=== PATIENT | female | born 1970 ===

== ENCOUNTER 2020-03-17 13:21 | Emergency (ER) | payer MEDICAID, SELFPAY ==
[2020-03-17 13:39] VITALS: BP 113/70; PULSE 99; RESP 20; TEMP 36.6; O2SAT 100; BMI 36.3
--- NOTE | 2020-03-17 13:53 | XR_ITS ---
EXAMINATION: XR chest 1V CLINICAL INFORMATION: Reason for Exam fever, cough, chest pain COMPARISON: Prior chest x-ray 04/09/2019 TECHNIQUE: XR chest 1V Tubes and lines: None Lungs and Natalie: Both lungs are clear. Pleura: Normal. Costophrenic angles are sharp. No pneumothorax. Heart and mediastinum: The mediastinum is within normal limits.. Bones: Skeletal structures included are normal for patient's age. XR/XR chest 1V IMPRESSION: Normal chest x-ray, no radiographic evidence of acute infiltrates.
--- NOTE | 2020-03-17 13:53 | ED.URI ---
HPI - URI/Sore Throat General Chief Complaint: Weakness Stated Complaint: flu symptoms Time Seen by Provider: 03/17/20 13:53 Source: patient Mode of arrival: ambulatory Limitations: no limitations History of Present Illness HPI Narrative: 50 y/o female presenting with fever, cough, body aches for the last 2 days. Cough is dry and keeps her up at night. She reports pain in the right side of her back when she coughs. She has been taking Tylenol with improvement in the back pain. She has been eating and drinking normally. Denies abd pain, N/V/D. Did not get her flu shot this year. No known exposure to COVID. MD elicited complaint: fever Onset (ago): day(s) (3) Consistency: constant Severity: moderate Able to tolerate fluids by mouth: Yes Exacerbating factors: exertion and deep breaths Relieving factors: NSAID and OTC cold medicine Associated symptoms: fever, chills, myalgias, headache, nasal congestion and cough Treatments prior to arrival: acetaminophen Related Data Previous Rx's Medication Instructions Recorded acetaminophen [Tylenol Arthritis 650 mg PO Q8H PRN #30 tab 03/17/20 Pain] hydrocodone-homatropine 5 ml PO Q6H PRN #60 ml 03/17/20 ibuprofen 600 mg PO Q8H PRN #20 tab 03/17/20 lidocaine [Lidoderm] 1 patch TOPICAL DAILY #15 ea 03/17/20 Allergies Allergy/AdvReac Type Severity Reaction Status Date / Time aspirin [ASA] Allergy Unknown HIVES Unverified 01/18/20 19:11 Penicillins [PENICILLINS] Allergy Unknown HIVES Unverified 01/18/20 19:11 Review of Systems Review of Systems: Constitutional: + Fever, + Chills ENT/Mouth: No sore throat, No Rhinorrhea, No Swallowing Difficulty Eyes: No Eye Pain, No Swelling, No Redness Cardiovascular: No Chest Pain, No SOB, No Orthopnea, No Edema Respiratory: + Cough, No Sputum, No Wheezing, + dyspnea Gastrointestinal: No Nausea, No Vomiting, No Diarrhea, No abdominal Pain Genitourinary: No Dysuria, No Urinary Frequency, No Hematuria Musculoskeletal: + joint pain, + Myalgias Skin: No Skin Lesions, No rash Neuro: No Weakness, No Numbness, No Dizziness, + Headache Psych: No Anxiety/Panic, No Depression Heme/Lymph: No Bruising, No Lymphadenopathy Endocrine: No Polyuria, No Polydipsia [facility] Past Medical History Attestation statement: The following information was validated with the patient. Medical History No known health problems Surgical History (Updated 03/17/20 @ 13:44 by Sam Brennan) Status post partial hysterectomy Social History Social History Advance Directives: No Advance Directives Information Provided: Yes Physical Exam Vital Signs: Vital Signs: Last Vital Signs Temp 97.9 F 03/17/20 13:39 Pulse 99 03/17/20 13:39 Resp 20 03/17/20 13:39 BP 113/70 03/17/20 13:39 Pulse Ox 100 03/17/20 13:39 Body Mass Index 36.3 Appearance: Alert. Oriented X3. No acute distress. Eyes: Pupils equal, round and reactive to light. ENT: Pharynx normal. Neck: Normal inspection. Neck supple. CVS: Normal heart rate and rhythm. Pulses normal. Respiratory: No respiratory distress. Breath sounds normal. Congested cough. Abdomen: Obese, soft and nontender. +BS x4 Skin: Skin warm and dry. Normal skin color. Normal skin turgor. No rashes. Extremities: No lower extremity edema. Neuro: Oriented X 3. No motor deficit. No sensory deficit. Course Course Course Narrative: 50 y/o female presenting with flu-like symptoms - cough, fever, myalgias. Concern for COVID vs influenza. Will get rapid swab now. CXR as well. VSS and she is non-toxic appearing. Reevaluation(s) Reevaluation #1: CXR normal. Patient requesting med for cough - will give Rx for antitussive, inhaler and tylenol for back aches. She is stable for discharge. Patient counseled - encouraged to f/u with PCP for further management. She would like to be discharged prior to knowing the results of her resp panel. Reevaluation #2: Called patient to inform her of POSITIVE COVID-19 test. All questions were answered. She will f/u with her employer and PCP. MDM - URI/Sore Throat MDM Narrative Medical decision making narrative: Concern for COVID vs influenza Differential Diagnosis Differential diagnosis: Likely upper respiratory infection, sinusitis, viral infection, bronchitis, influenza and pharyngitis Lab Data Labs: Lab Results 03/17/20 Range/Units 14:11 Coronavirus (PCR) POSITIVE A (Negative) Influenza Type A (PCR) NEGATIVE (Negative) Influenza Type B (PCR) NEGATIVE (Negative) RSV RNA Qual (PCR) NEGATIVE (Negative) Critical Care Time Critical Care Time Critical Care Time: No Discharge Plan Discharge Clinical Impression: Acute viral syndrome Patient Disposition: Home, Self-Care Instructions: Viral Syndrome (ED), COVID-19 (Coronavirus Disease 2019) (ED) Additional Instructions: Your chest x-ray today was normal. You were tested for COVID-19, Influenza A/B and RSV. We will call you with the results this afternoon. Continue taking Motrin and/or Tylenol as needed for back pain and muscle aches and pain. If you develop difficulty breathing, shortness of breath or change in chest pain call 911 or come back to the ER fur further evaluation. Follow up with your doctor this week. Take over the counter cold/flu medications for your symptoms as needed. Prescriptions: New ibuprofen 600 mg tablet 600 mg PO Q8H PRN (Reason: pain) Qty: 20 RF: 0 acetaminophen [Tylenol Arthritis Pain] 650 mg tablet extended release 650 mg PO Q8H PRN (Reason: pain) Qty: 30 RF: 0 lidocaine [Lidoderm] 5 % adhesive patch,medicated 1 patch topical DAILY Qty: 15 RF: 0 hydrocodone-homatropine 5-1.5 mg/5 mL syrup 5 ml PO Q6H PRN (Reason: cough) Qty: 60 RF: 0 Stand Alone Forms: Work/School Release Interventions: ED Discharge Assessment Last Done: 03/17/20 15:06 Discharge Date/Time: 03/17/20 15:07
[2020-03-17 15:02] LABS: Influenza A PCR NEGATIVE (Negative); Influenza B PCR NEGATIVE (Negative); Resp Syncy Virus RNA Qual PCR NEGATIVE (Negative); SARS COV2 PCR INHOUSE POSITIVE (Negative)
== END 2020-03-17 15:07 | disposition home or self-care (01) ==
PROVIDERS: Physician Assistant; Emergency Provider Emergency Medicine
DX: B34.9 Viral infection, unspecified (principal); R50.9 Fever, unspecified; R05 Cough; Z20.828 Contact with and (suspected) exposure to other viral communicable diseases; Z79.899 Other long term (current) drug therapy
CPT/HCPCS: 0241U; 71045; 99283

== ENCOUNTER 2020-09-20 07:53 | Emergency (ER) | payer OTHER, SELFPAY ==
--- NOTE | ~2020-09-20 | XR_ITS ---
EXAMINATION: XR CHEST CLINICAL INFORMATION: Cough. COMPARISON: Chest 03/17/2020 TECHNIQUE: Frontal view of the chest was obtained. FINDINGS: No significant abnormality is noted involving the heart, lungs, mediastinum, bony thorax or soft tissues. XR/XR chest 1V IMPRESSION: Unremarkable chest examination. No change from 03/17/2020
[2020-09-20 08:07] VITALS: BP 125/68; PULSE 99; RESP 16; TEMP 36.7; O2SAT 97; BMI 34.8
--- NOTE | 2020-09-20 08:41 | ED_ITS ---
HPI - General Adult General Chief complaint: General Medical Stated complaint: fever, cough Time Seen by Provider: 09/20/20 08:21 Source: patient Mode of arrival: ambulatory Limitations: no limitations History of Present Illness HPI narrative: 53-year-old female presents to ED for 1 week of fever and cough and also body aches. Patient wants to be tested for COVID. Patient had COVID last year. Patient denies anyone else at home having symptoms. Patient states no sore throat, abdominal pain, diarrhea, chest pain, or shortness of breath. Related Data Previous Rx's Medication Instructions Recorded acetaminophen [Tylenol Arthritis 650 mg PO Q8H PRN #30 tab 03/17/20 Pain] hydrocodone-homatropine 5 ml PO Q6H PRN #60 ml 03/17/20 ibuprofen 600 mg PO Q8H PRN #20 tab 03/17/20 lidocaine [Lidoderm] 1 patch TOPICAL DAILY #15 ea 03/17/20 benzonatate [Tessalon Perles] 100 mg PO TID PRN #18 cap 09/20/20 Allergies Allergy/AdvReac Type Severity Reaction Status Date / Time aspirin [ASA] Allergy Unknown HIVES Unverified 01/18/20 19:11 Penicillins [PENICILLINS] Allergy Unknown HIVES Unverified 01/18/20 19:11 Review of Systems Review of Systems: Yes all other systems are reviewed and are negative Constitutional: Constitutional: Reports as per HPI, Reports no additional constitutional complaints, Reports body ache(s) and Reports fever(s) Eyes: Eyes: Reports as per HPI and Reports no additional eye complaints ENT: Reports system reviewed and no additional complaints, except as documented and Reports as per HPI Cardiovascular: Cardiovascular: Reports as per HPI, Reports no additional cardiovascular complaints, Denies chest pain, Denies dyspnea and Denies dyspnea on exertion Respiratory: Respiratory: Reports as per HPI, Reports no additional respiratory complaints, Reports cough, Denies pain on inspiration, Denies pain with cough, Denies dyspnea and Denies dyspnea on exertion Gastrointestinal: Gastrointestinal: Reports as per HPI and Reports no additional gastrointestinal complaints Musculoskeletal: Musculoskeletal: Reports no additional musculoskeletal complaints and Reports as per HPI Neurologic: Reports system reviewed and no additional complaints, except as documented and Reports as per HPI [facility] Past Medical History Medical History No known health problems Surgical History (Updated 03/17/20 @ 13:44 by Sam Brennan) Status post partial hysterectomy Social History Social History Advance Directives: Yes Advance Directives Information Provided: Yes Advance Directives on File: No Patient : No Physical Exam Vital Signs: Vital Signs: Last Vital Signs Temp 98.1 F 09/20/20 08:07 Pulse 99 09/20/20 08:07 Resp 16 09/20/20 08:07 BP 125/68 09/20/20 08:07 Pulse Ox 97 09/20/20 08:07 Body Mass Index 34.8 Const: General: cooperative, healthy appearing, comfortable, no acute distress, well developed, alert and awake Orientation/consciousness: patient oriented x3 HENMT: Head: Yes normal to inspection, Yes No palpable skull fracture present, Yes normocephalic and Yes atraumatic Ears: hearing grossly normal bilaterally and external ears normal Throat: Yes posterior oropharynx normal, Yes tonsils normal and Yes uvula midline Eyes: General: appearance normal, both eyes and all related structures Neck: Neck: Yes normal visual inspection, Yes full ROM, Yes no lymphadenopathy, Yes no meningeal signs, Yes trachea midline, Yes supple and No tender Chest: Chest palpation & inspection: normal inspection of the chest and normal palpation of entire chest wall Resp: Effort & Inspection: normal respiratory effort and able to speak in complete sentences Auscultation: clear to auscultation bilaterally Cardio: Jugular venous distension: no JVD Heart sounds: S1 normal heart sound present and S2 normal heart sound present GI: Inspection: Yes normal to inspection and No abdominal wall ecchymosis Palpation (GI): Soft to palpation, not firm, nontender, no guarding and not rigid : General: No CVA tenderness and Yes no CVA tenderness Back/Spine/Pelvis: Back: no CVA tenderness, No CVA tenderness and No back tenderness Skin: General skin exam: no rashes or lesions noted and elasticity normal Neuro: General: patient oriented x3, no meningeal signs and CN's II-XI intact bilaterally Cranial nerves: Yes CN's II-XII intact bilaterally Extrem: General: Yes normal to inspection and Yes full ROM Psych: Appearance: grossly normal, well kempt and not disheveled Course Course Course Narrative: Patient will have COVID swab sent and had chest x-ray ordered. Reevaluation(s) Reevaluation #1: Chest x-ray negative for pneumonia. Patient will be called with COVID swab results. Reevaluation #2: COVID swab came back negative. Patient was called and informed of results. Time: 17:10 Medical Decision Making MDM Narrative Medical decision making narrative: Viral syndrome Lab Data Labs: Lab Results 09/20/20 Range/Units 08:37 Coronavirus (PCR) NEGATIVE (Negative) Influenza Type A (PCR) NEGATIVE (Negative) Influenza Type B (PCR) NEGATIVE (Negative) RSV RNA Qual (PCR) NEGATIVE (Negative) Discharge Plan Discharge Clinical Impression: Upper respiratory infection, Acute viral syndrome Patient Disposition: Home, Self-Care Instructions: Upper Respiratory Infection (ED), Viral Syndrome (ED) Additional Instructions: Return to ED for any chest pain, shortness of breath, weakness, dizziness, swelling of lower extremity, calf pain, coughing up blood, or any other concerning symptoms. Please follow-up with PCP Prescriptions: New benzonatate [Tessalon Perles] 100 mg capsule 100 mg PO TID PRN (Reason: cough) Qty: 18 RF: 0 No Action ibuprofen 600 mg tablet 600 mg PO Q8H PRN (Reason: pain) Qty: 20 RF: 0 acetaminophen [Tylenol Arthritis Pain] 650 mg tablet extended release 650 mg PO Q8H PRN (Reason: pain) Qty: 30 RF: 0 lidocaine [Lidoderm] 5 % adhesive patch,medicated 1 patch topical DAILY Qty: 15 RF: 0 hydrocodone-homatropine 5-1.5 mg/5 mL syrup 5 ml PO Q6H PRN (Reason: cough) Qty: 60 RF: 0 Stand Alone Forms: Work/School Release Interventions: ED Discharge Assessment Last Done: 09/20/20 10:33 Discharge Date/Time: 09/20/20 10:35 Print Language: Sinhala
[2020-09-20] MEDS: Acetaminophen 325 MG TABLET 650 MG PO (09:08)
[2020-09-20 09:30] LABS: Influenza A PCR NEGATIVE (Negative); Influenza B PCR NEGATIVE (Negative); Resp Syncy Virus RNA Qual PCR NEGATIVE (Negative); SARS COV2 PCR INHOUSE NEGATIVE (Negative)
== END 2020-09-20 10:35 | disposition home or self-care (01) ==
PROVIDERS: Physician Assistant; Emergency Provider Internal Medicine
DX: J06.9 Acute upper respiratory infection, unspecified (principal); B34.9 Viral infection, unspecified; R50.9 Fever, unspecified; R05 Cough; Z20.822 Contact with and (suspected) exposure to COVID-19; Z79.899 Other long term (current) drug therapy
CPT/HCPCS: 0241U; 36415; 71045; 99283

== ENCOUNTER 2020-11-25 10:47 | Emergency (ER) | payer OTHER, SELFPAY ==
--- NOTE | ~2020-11-25 | CT_ITS ---
EXAMINATION: CT ANGIOGRAM OF THE CHEST WITH AND WITHOUT CONTRAST (CT PULMONARY ANGIOGRAM FOR PE) CLINICAL INFORMATION: Reason for Exam Left upper back pain, r/o pe COMPARISON: Previous chest x-ray from earlier the same day TECHNIQUE: Prior to contrast administration, noncontrast localization images were obtained. Subsequently, multidetector volumetric imaging was performed from the thoracic inlet to below the diaphragms following the administration of 75 mL Omnipaque 350 intravenous contrast. No contrast reaction reported Sagittal, coronal, and MIP oblique sagittal reformatted images were obtained on the CT workstation, uploaded to PACS, and reviewed. This CT examination was performed using dose optimization techniques as appropriate, variously including the following: *Automated exposure control *Adjustment of mA and/or kV according to patient size (this includes techniques or standardized protocols for targeted exams where dose is matched to indication/reason for exam; i.e. extremities or head) *Use of iterative reconstruction technique Total exam dose-length product 709 mGy-cm FINDINGS: QUALITY OF STUDY/CONTRAST BOLUS: Satisfactory. PULMONARY ARTERIES: No central or segmental pulmonary emboli. THORACIC AORTA: No aneurysm or dissection. LUNG: The lung volumes are low. No focal consolidation, nodules or masses. PLEURA: No pleural effusion or pneumothorax. MEDIASTINUM: Normal heart size. No pericardial effusion. No hilar or mediastinal lymphadenopathy. No evidence of septal bowing or right heart strain. CHEST WALL/AXILLA: There are small bilateral axillary lymph nodes. No enlarged lymph nodes or chest wall mass is seen. OSSEOUS STRUCTURES: No acute or suspicious osseous abnormality. There are degenerative changes of the spine. UPPER ABDOMEN: Unremarkable. No reflux of contrast into the hepatic veins to suggest elevated right heart pressures. CT/CT angio chest PE protocol IMPRESSION: No evidence of pulmonary embolism. Low lung volumes. Degenerative changes of the spine. VTE: negative
--- NOTE | ~2020-11-25 | XR_ITS ---
EXAMINATION: XR CHEST CLINICAL INFORMATION: Back pain. Fall. COMPARISON: Previous chest x-rays most recent August 2020 TECHNIQUE: 2 views of the chest were obtained. FINDINGS: The cardiac and mediastinal contours are stable. There are increased central markings questionable for bronchial wall thickening. The lungs are otherwise clear. No evidence of pneumonia is seen. There is no pleural effusion or pneumothorax. There are degenerative changes of the spine. XR/XR chest 2V IMPRESSION: Increased hilar markings suggestive of central bronchial wall thickening, left greater than right. No evidence of pneumonia.
[2020-11-25 11:09] VITALS: BP 97/68; PULSE 84; RESP 18; TEMP 36.1; O2SAT 96; BMI 34.7
--- NOTE | 2020-11-25 11:52 | ECG_ITS ---
Test Reason : UPPER BACK PAIN Blood Pressure : / mmHG Vent. Rate : 067 BPM Atrial Rate : 067 BPM P-R Int : 144 ms QRS Dur : 072 ms QT Int : 440 ms P-R-T Axes : 055 027 038 degrees QTc Int : 464 ms Normal sinus rhythm Normal ECG When compared with ECG of 27-MAR-2017 03:25, T wave inversion no longer evident in Anterior leads Referred By: Wendy Weiss Electronically Signed By:ANITA BRAGG
[2020-11-25 12:32] LABS: MANUAL DIFF FLAG NO
[2020-11-25 12:35] LABS: Basophils Percent Auto 0.4 % (0-2); Eosinophils Absolute Auto 0.2 X10*3/uL (0.0-0.4); Hematocrit 44.5 % (37-47); Hemoglobin 14.5 g/dl (12.0-16.0); Imm Gran Abs Auto 0.04 X10*3/uL (0.00-0.03); Imm Gran Pct Auto 0.5 % (0.0-0.4); Lymphocytes Absolute Auto 2.9 X10*3/uL (1.2-4.9); Lymphocytes Percent Auto 35.8 % (20-40); Mean Corpuscular HGB Conc 32.6 g/dl (31.0-35.0); Mean Corpuscular Hemoglobin 28.4 pg (27.0-33.0); Mean Corpuscular Volume 87.3 fL (80-98); Mean Platelet Volume 9.3 fL (9.4-12.3); Monocytes Absolute Auto 0.5 X10*3/uL (0.1-1.2); Monocytes Percent Auto 5.6 % (2-11); Neutrophils Absolute Auto 4.5 X10*3/uL (2.0-8.3); Neutrophils Percent Auto 55.7 % (45-73); Platelet Count 358 X10*3/uL (160-400); Red Cell Distribution Width 14.6 % (11.0-16.0); White Blood Count 8.1 X10*3/uL (4.8-10.8)
--- NOTE | 2020-11-25 12:50 | ED_ITS ---
HPI - Back Pain/Injury General Chief Complaint: Back Pain/Injury Stated Complaint: flank pain Time Seen by Provider: 11/25/20 11:49 Source: patient Mode of arrival: ambulatory Limitations: no limitations History of Present Illness HPI Narrative: 50-year-old female here with complaints of left flank/left upper back pain x 3 days. Patient also has a cough. No shortness of breath or chest pain. Pain is worsened with palpation, deep breathing and movement. No leg swelling or pain. No recent travel or sick contacts. No urinary symptoms. No fevers, chills, nausea, vomiting, diarrhea. Related Data Previous Rx's Medication Instructions Recorded acetaminophen [Tylenol Arthritis 650 mg PO Q8H PRN #30 tab 03/17/20 Pain] hydrocodone-homatropine 5 ml PO Q6H PRN #60 ml 03/17/20 ibuprofen 600 mg PO Q8H PRN #20 tab 03/17/20 lidocaine [Lidoderm] 1 patch TOPICAL DAILY #15 ea 03/17/20 benzonatate [Tessalon Perles] 100 mg PO TID PRN #18 cap 09/20/20 cyclobenzaprine 10 mg PO TID PRN #10 tab 11/25/20 lidocaine [Lidoderm] 1 patch TOPICAL DAILY #15 ea 11/25/20 Allergies Allergy/AdvReac Type Severity Reaction Status Date / Time aspirin [ASA] Allergy Unknown HIVES Verified 11/25/20 11:09 Penicillins [PENICILLINS] Allergy Unknown HIVES Verified 11/25/20 11:09 Review of Systems Review of Systems: Yes all other systems are reviewed and are negative Constitutional: Constitutional: Reports no additional constitutional comp laints, Denies body ache(s), Denies chills, Denies fever(s), Denies headache(s) and Denies weakness Eyes: Eyes: Reports no additional eye complaints and Denies change in vision ENT: Reports system reviewed and no additional complaints, except as documented, Denies dizziness, Denies headache(s), Denies nasal congestion, Denies nasal discharge and Denies neck pain Cardiovascular: Cardiovascular: Reports no additional cardiovascular complaints, Denies chest pain, Denies leg edema and Denies dyspnea Respiratory: Respiratory: Reports no additional respiratory complaints, Reports cough and Denies dyspnea Gastrointestinal: Gastrointestinal: Reports no additional gastrointestinal complaints, Denies abdominal pain, Denies diarrhea, Denies nausea and Denies vomiting Genitourinary: Genitourinary: Reports no additional female genitourinary complaints and Denies urinary incontinence Musculoskeletal: Musculoskeletal: Reports no additional musculoskeletal complaints, Reports back pain, Denies arthralgias, Denies joint swelling, Denies neck pain, Denies numbness and Denies tingling Integumentary/Breasts: Skin/Breast: Reports system reviewed and no additional complaints, except as docu and Denies rash Neurologic: Reports system reviewed and no additional complaints, except as documented, Denies Abnormal speech present, Denies dizziness, Denies headache(s), Denies numbness, Denies tingling and Denies weakness PMFSH Past Medical History Attestation statement: The following information was validated with the patient. Source: old records reviewed and nursing notes reviewed Medical History No known health problems Surgical History Status post partial hysterectomy Social History Social History Advance Directives: Yes Advance Directives Information Provided: No Advance Directives on File: No Physical Exam Vital Signs: Vital Signs: Last Vital Signs Temp 98.5 F 11/25/20 14:24 Pulse 66 11/25/20 14:24 Resp 16 11/25/20 14:24 BP 114/64 11/25/20 14:24 Pulse Ox 97 11/25/20 14:24 Body Mass Index 34.7 Const: General: cooperative, healthy appearing, comfortable and no acute distress Orientation/consciousness: patient oriented x3 Limitations: no limitations HENMT: Head: Yes normal to inspection Ears: hearing grossly normal bilaterally General nose exam: Normal external nose present Face and sinus: Yes normal facial exam Mouth: Normal oral and palatal mucosa present Throat: Yes posterior oropharynx normal Eyes: General: appearance normal, both eyes and all related structures Pupils: Equal, round and reactive pupils present Neck: Neck: Yes normal visual inspection Chest: Chest palpation & inspection: normal inspection of the chest Resp: Effort & Inspection: normal respiratory effort Auscultation: clear to auscultation bilaterally Cardio: Rate: regular rate Rhythm: regular rhythm Peripheral pulses: Peripheral pulses 2+ throughout GI: Inspection: Yes normal to inspection Palpation (GI): Soft to palpation and nontender Auscultation: normal bowel sounds Back/Spine/Pelvis: Other: Left upper thoracic tenderness with no midline tenderness step-offs or deformities. Most of the patient's pain is in her soft tissue area. No muscle spasm. Thoracic/Lumbar Spine: thoracic and lumbar spine normal to inspection Skin: General skin exam: no rashes or lesions noted Neuro: General: patient oriented x3, no focal motor deficits and normal sensation to monofilament Cranial nerves: Yes Equal, round and reactive pupils present Cognition (Neuro): normal cognition Speech: No Abnormal speech present Gait exam (Neuro): Normal gait present Motor exam (neuro): 5/5 motor strength present throughout Extrem: General: Yes normal to inspection, Yes no pedal edema and Yes no calf tenderness Course Course Course Narrative: 50-year-old female here with complaints of left upper back pain x3 days with a dry intermittent cough. No shortness of breath, leg swell ing or chest pain. No urinary symptoms. Hemodynamically stable. Will check labs, EKG, chest x-ray. 1405-mildly elevated D-dimer. Family history of blood clots. Will check CTA to r/o pe 1530-CT negative for PE. Likely muscular. All other labs and urine negative. Reviewed findings with the patient. Will treat supportively with muscle relaxants and medicated patches. Reviewed worrisome signs and symptoms when to return to the emergency department. Comfortable discharge home. MDM - Back Pain/Injury MDM Narrative Medical decision making narrative: Renal colic, pyelonephritis, PE, Differential Diagnosis Differential diagnosis: Likely lumbar radiculopathy and strain of lumbar region Medical Records Attestation: I reviewed the patient's medical records. Lab Data Attestation: I reviewed the patient's lab results. Result diagrams: 11/25/20 12:22 11/25/20 12:22 Labs: Lab Results 11/25/20 11/25/20 11/25/20 Range/Units 12:22 12:22 12:22 WBC 8.1 (4.8-10.8) X10*3/uL RBC 5.10 (4.20-5.50) X10*6/uL Hgb 14.5 (12.0-16.0) g/dl Hct 44.5 (37-47) % MCV 87.3 (80-98) fL MCH 28.4 (27.0-33.0) pg MCHC 32.6 (31.0-35.0) g/dl RDW 14.6 (11.0-16.0) % Plt Count 358 (160-400) X10*3/uL MPV 9.3 L (9.4-12.3) fL Immature Gran % (Auto) 0.5 H (0.0-0.4) % Neut % (Auto) 55.7 (45-73) % Lymph % (Auto) 35.8 (20-40) % [place] % (Auto) 5.6 (2-11) % Eos % (Auto) 2.0 (0-4) % Baso % (Auto) 0.4 (0-2) % Lymph # (Auto) 2.9 (1.2-4.9) X10*3/uL [place] # (Auto) 0.5 (0.1-1.2) X10*3/uL Eos # (Auto) 0.2 (0.0-0.4) X10*3/uL Baso # (Auto) 0.0 (0.0-0.2) X10*3/uL Abs Immat Gran (auto) 0.04 H (0.00-0.03) X10*3/uL Absolute Neuts (auto) 4.5 (2.0-8.3) X10*3/uL Absolute Nucleated RBC 0.000 (0.0-0.012) X10*3/uL Nucleated RBC % (auto) 0.0 (0.0-0.2) /100WBC D-Dimer NG/ML Sodium 139 (135-145) mmol/L Potassium 4.4 (3.3-5.1) mmol/L Chloride 106 (96-108) mmol/L Carbon Dioxide 27 (22-29) mmol/L Anion Gap 10 L (12-20) BUN 16 (9-16) mg/dL Creatinine 1.07 (0.5-1.4) mg/dL Estim Creat Clear Calc 73.2 Estimated GFR 54 Random Glucose 128 H (60-115) mg/dL Calcium 9.7 (8.4-10.2) mg/dL Total Bilirubin < 0.2 (0.0-1.0) mg/dL Direct Bilirubin < 0.2 (0.0-0.5) mg/dL AST 14 (5-31) U/L ALT 11 (0-31) U/L Alkaline Phosphatase 88 (39-117) U/L Total Protein 8.5 H (6.5-8.0) g/dL Albumin 4.3 (3.5-5.0) g/dL Lipase 22 (8-78) U/L Urine Color Urine Appearance Urine pH (5.0-8.0) Ur Specific [place] (1.005-1.025) Urine Protein (NEG-TRACE) MG/DL Urine Glucose (UA) (NEG) MG/DL Urine Ketones (NEG) MG/DL Urine Blood (NEG) Urine Nitrite (NEG) Ur Leukocyte Esterase (NEG) 11/25/20 11/25/20 Range/Units 13:17 13:34 WBC (4.8-10.8) X10*3/uL RBC (4.20-5.50) X10*6/uL Hgb (12.0-16.0) g/dl Hct (37-47) % MCV (80-98) fL MCH (27.0-33.0) pg MCHC (31.0-35.0) g/dl RDW (11.0-16.0) % Plt Count (160-400) X10*3/uL MPV (9.4-12.3) fL Immature Gran % (Auto) (0.0-0.4) % Neut % (Auto) (45-73) % Lymph % (Auto) (20-40) % [place] % (Auto) (2-11) % Eos % (Auto) (0-4) % Baso % (Auto) (0-2) % Lymph # (Auto) (1.2-4.9) X10*3/uL [place] # (Auto) (0.1-1.2) X10*3/uL Eos # (Auto) (0.0-0.4) X10*3/uL Baso # (Auto) (0.0-0.2) X10*3/uL Abs Immat Gran (auto) (0.00-0.03) X10*3/uL Absolute Neuts (auto) (2.0-8.3) X10*3/uL Absolute Nucleated RBC (0.0-0.012) X10*3/uL Nucleated RBC % (auto) (0.0-0.2) /100WBC D-Dimer 257 NG/ML Sodium (135-145) mmol/L Potassium (3.3-5.1) mmol/L Chloride (96-108) mmol/L Carbon Dioxide (22-29) mmol/L Anion Gap (12-20) BUN (9-16) mg/dL Creatinine (0.5-1.4) mg/dL Estim Creat Clear Calc Estimated GFR Random Glucose (60-115) mg/dL Calcium (8.4-10.2) mg/dL Total Bilirubin (0.0-1.0) mg/dL Direct Bilirubin (0.0-0.5) mg/dL AST (5-31) U/L ALT (0-31) U/L Alkaline Phosphatase (39-117) U/L Total Protein (6.5-8.0) g/dL Albumin (3.5-5.0) g/dL Lipase (8-78) U/L Urine Color YELLOW Urine Appearance HAZY Urine pH 5.5 (5.0-8.0) Ur Specific [place] >= 1.030 H (1.005-1.025) Urine Protein NEG (NEG-TRACE) MG/DL Urine Glucose (UA) NEG (NEG) MG/DL Urine Ketones NEG (NEG) MG/DL Urine Blood NEG (NEG) Urine Nitrite NEG (NEG) Ur Leukocyte Esterase NEG (NEG) Imaging Data Chest x-ray: Attestation: I personally reviewed and interpreted this imaging study as follows: Radiologist's impression: [address] [id number] ReportSigned Patient: Ellie MartinezMR#: [id number]: 1970Acct:[id number]/Sex: 50 / FADM Date: 11/25/20Loc: Angelo Sellers: Ordering Physician: SACHA POOL NP Date of Service: 11/25/20 Procedure(s): XR chest 2V Accession Number(s): [id number] cc: SACHA POOL NP~ EXAMINATION: XR CHEST CLINICAL INFORMATION: Back pain. Fall. COMPARISON: Previous chest x-rays most recent August 2020 TECHNIQUE: 2 views of the chest were obtained. FINDINGS: The cardiac and mediastinal contours are stable. There are increased central markings questionable for bronchial wall thickening. The lungs are otherwise clear. No evidence of pneumonia is seen. There is no pleural effusion or pneumothorax. There are degenerative changes of the spine. XR/XR chest 2V IMPRESSION: Increased hilar markings suggestive of central bronchial wall thickening, left greater than right. No evidence of pneumonia. CT chest: Radiologist's impression: FINDINGS: QUALITY OF STUDY/CONTRAST BOLUS: Satisfactory. PULMONARY ARTERIES: No central or segmental pulmonary emboli. THORACIC AORTA: No aneurysm or dissection. LUNG: The lung volumes are low. No focal consolidation, nodules or masses. PLEURA: No pleural effusion or pneumothorax. MEDIASTINUM: Normal heart size. No pericardial effusion. No hilar or mediastinal lymphadenopathy. No evidence of septal bowing or right heart strain. CHEST WALL/AXILLA: There are small bilateral axillary lymph nodes. No enlarged lymph nodes or chest wall mass is seen. OSSEOUS STRUCTURES: No acute or suspicious osseous abnormality. There are degenerative changes of the spine. UPPER ABDOMEN: Unremarkable. No reflux of contrast into the hepatic veins to suggest elevated right heart pressures. CT/CT angio chest PE protocol IMPRESSION: No evidence of pulmonary embolism. Low lung volumes. Degenerative changes of the spine. VTE: negative ECG Data Attestation: I personally reviewed and interpreted this ECG as follows: ECG interpretation date: 11/25/20 ECG interpretation time: 11:52 Interpretation: Normal sinus rhythm with a rate of 67, normal CA, normal QRS, normal QT Discharge Plan Discharge Clinical Impression: Strain of lumbar region Patient Disposition: Home, Self-Care Instructions: Low Back Strain (ED), Lower Back Exercises (ED), Core Stre ngthening Exercises (ED) Additional Instructions: Increase fluids, rest Gentle stretching, heat to the area Prescriptions: New cyclobenzaprine 10 mg tablet 10 mg PO TID PRN (Reason: muscle spasm) Qty: 10 RF: 0 lidocaine [Lidoderm] 5 % adhesive patch,medicated 1 patch topical DAILY Qty: 15 RF: 0 No Action ibuprofen 600 mg tablet 600 mg PO Q8H PRN (Reason: pain) Qty: 20 RF: 0 acetaminophen [Tylenol Arthritis Pain] 650 mg tablet extended release 650 mg PO Q8H PRN (Reason: pain) Qty: 30 RF: 0 lidocaine [Lidoderm] 5 % adhesive patch,medicated 1 patch topical DAILY Qty: 15 RF: 0 hydrocodone-homatropine 5-1.5 mg/5 mL syrup 5 ml PO Q6H PRN (Reason: cough) Qty: 60 RF: 0 benzonatate [Tessalon Perles] 100 mg capsule 100 mg PO TID PRN (Reason: cough) Qty: 18 RF: 0 Referrals: Physician,None [Primary Care Provider] - 2 days
[2020-11-25 13:01] LABS: Lipase 22 U/L (8-78)
[2020-11-25 13:09] LABS: Alanine Aminotransferase 11 U/L (0-31); Albumin Level 4.3 g/dL (3.5-5.0); Alkaline Phosphatase 88 U/L (39-117); Anion Gap 10 (12-20); Aspartate Amino Transferase 14 U/L (5-31); Bilirubin Direct < 0.2 mg/dL (0.0-0.5); Bilirubin Total < 0.2 mg/dL (0.0-1.0); Blood Urea Nitrogen 16 mg/dL (9-16); Calcium 9.7 mg/dL (8.4-10.2); Carbon Dioxide 27 mmol/L (22-29); Chloride 106 mmol/L (96-108); Creatinine Clr Calc Pharmacy 73.2; Estimated Glomerular Filt Rate 54; Glucose Random 128 mg/dL (60-115); Potassium 4.4 mmol/L (3.3-5.1); Sodium 139 mmol/L (135-145); Total Protein 8.5 g/dL (6.5-8.0)
[2020-11-25 13:25] LABS: Glucose Urine UA NEG (NEG); Leukocyte Esterase Urine NEG (NEG); Nitrite Urine NEG (NEG); PH 5.5 (5.0-8.0); Specific Gravity - Urine >= 1.030 (1.005-1.025); Urine Blood NEG (NEG); Urine Ketones NEG (NEG); Urine Protein NEG (NEG-TRACE)
[2020-11-25 13:28] LABS: Appearance Urine HAZY; Color Urine YELLOW
[2020-11-25 13:50] LABS: D Dimer 257 NG/ML
[2020-11-25 14:24] VITALS: BP 114/64; PULSE 66; RESP 16; TEMP 36.9; O2SAT 97
[2020-11-25] MEDS: iohexoL 350 MG/ML 100 ML INFUS..BTL IV (14:59)
== END 2020-11-25 15:48 | disposition home or self-care (01) ==
PROVIDERS: Nurse Practitioner Family; Emergency Provider Emergency Medicine Emergency Medical Services
DX: S39.012A Strain of muscle, fascia and tendon of lower back, initial encounter (principal); X58.XXXA Exposure to other specified factors, initial encounter; Y93.9 Activity, unspecified; Y92.9 Unspecified place or not applicable; Y99.9 Unspecified external cause status
CPT/HCPCS: 36415; 71046; 71275; 80048; 80076; 81003; 83690; 85025; 85379; 93005; 99284; Q9967

== ENCOUNTER 2021-04-27 12:55 | Emergency (ER) | payer OTHER, SELFPAY ==
[2021-04-27 14:11] LABS: Influenza A PCR NEGATIVE (Negative); Influenza B PCR NEGATIVE (Negative); Resp Syncy Virus RNA Qual PCR NEGATIVE (Negative); SARS COV2 PCR INHOUSE POSITIVE (Negative)
[2021-04-27 17:38] VITALS: BP 121/72; PULSE 76; RESP 18; TEMP 36.8; O2SAT 95; BMI 35.6
--- NOTE | 2021-04-27 20:05 | ED_ITS ---
HPI - Fever General Chief Complaint: Fever Stated Complaint: FEVER Time Seen by Provider: 04/27/21 12:59 Related Data Previous Rx's Medication Instructions Recorded acetaminophen 650 mg 650 mg PO Q8H PRN #30 tab 03/17/20 tablet,extended release (Tylenol Arthritis Pain) hydrocodone-homatropine 5 mg-1.5 5 ml PO Q6H PRN #60 ml 03/17/20 mg/5 mL oral syrup ibuprofen 600 mg tablet 600 mg PO Q8H PRN #20 tab 03/17/20 lidocaine 5 % topical patch 1 patch TOPICAL DAILY #15 ea 03/17/20 (Lidoderm) benzonatate 100 mg capsule 100 mg PO TID PRN #18 cap 09/20/20 (Tessalon Perles) cyclobenzaprine 10 mg tablet 10 mg PO TID PRN #10 tab 11/25/20 lidocaine 5 % topical patch 1 patch TOPICAL DAILY #15 ea 11/25/20 (Lidoderm) hydrocodone-homatropine 5 mg-1.5 5 ml PO Q6H PRN #60 ml 04/27/21 mg/5 mL (5 mL) oral syrup (Hycodan) ondansetron 4 mg disintegrating 4 mg PO Q6-8H PRN #14 tab 04/27/21 tablet Allergies Allergy/AdvReac Type Severity Reaction Status Date / Time aspirin [ASA] Allergy Unknown HIVES Verified 11/25/20 11:09 Penicillins [PENICILLINS] Allergy Unknown HIVES Verified 11/25/20 11:09 [facility] Past Medical History Medical History No known health problems Surgical History Status post partial hysterectomy Social History Social History Advance Directives: No Advance Directives Information Provided: No Patient : No Physical Exam Vital Signs: Vital Signs: Last Vital Signs Temp 98.2 F 04/27/21 17:38 Pulse 76 04/27/21 17:38 Resp 18 04/27/21 17:38 BP 121/72 04/27/21 17:38 Pulse Ox 95 04/27/21 17:38 BMI result Body Mass Index 35.6 MDM - Fever Lab Data Labs: Lab Results 04/27/21 Range/Units 13:26 Influenza Type A (PCR) NEGATIVE (Negative) Influenza Type B (PCR) NEGATIVE (Negative) RSV RNA Qual (PCR) NEGATIVE (Negative) SARS-CoV-2 RNA (RT-PCR) POSITIVE A (Negative) Discharge Plan Discharge Clinical Impression: COVID-19 virus infection Patient Disposition: Home, Self-Care Instructions: COVID-19 (Coronavirus Disease 2019) (ED) Additional Instructions: Your COVID-19 test was positive. Your O2 saturation on room air was 95%. We usually do not admit people to the hospital unless they have COVID pneumonia and their O2 saturation is between 88 and 90%., At this time I do not think you have COVID pneumonia. Take Zofran ODT 4 mg pills, 1 pill dissolved in your mouth every 8 hours as needed for nausea and vomiting. I am also prescribing Hycodan 5 mL every 6 hours as needed for cough. This is a narcotic medication, if your concerned about addiction you can ask the pharmacist for less medicine or not fill the prescription. Take ibuprofen 200 mg pills, 3 pills every 6 hours as needed for pain. Take Tylenol (acetaminophen) 500 mg pills, 2 pills every 4 to 6 hours as needed for pain. I am referring you to the [facility] clinic for monoclonal antibody therapy. This might help you fight off the virus faster. Please call the number at the bottom of the form tomorrow to make sure that the have your information and schedule you for treatment. Follow-up with your doctor in 2 days. Please return to the emergency department if your symptoms get worse or if you develop any symptoms that are concerning to you. Please see work note. Prescriptions: New ondansetron 4 mg tablet,disintegrating 4 mg PO Q6-8H PRN (Reason: nausea and vomiting) Qty: 14 RF: 0 hydrocodone-homatropine [Hycodan] 5-1.5 mg/5 mL (5 mL) syrup 5 ml PO Q6H PRN (Reason: cough) Qty: 60 RF: 0 No Action ibuprofen 600 mg tablet 600 mg PO Q8H PRN (Reason: pain) Qty: 20 RF: 0 acetaminophen [Tylenol Arthritis Pain] 650 mg tablet extended release 650 mg PO Q8H PRN (Reason: pain) Qty: 30 RF: 0 lidocaine [Lidoderm] 5 % adhesive patch,medicated 1 patch topical DAILY Qty: 15 RF: 0 hydrocodone-homatropine 5-1.5 mg/5 mL syrup 5 ml PO Q6H PRN (Reason: cough) Qty: 60 RF: 0 benzonatate [Tessalon Perles] 100 mg capsule 100 mg PO TID PRN (Reason: cough) Qty: 18 RF: 0 cyclobenzaprine 10 mg tablet 10 mg PO TID PRN (Reason: muscle spasm) Qty: 10 RF: 0 lidocaine [Lidoderm] 5 % adhesive patch,medicated 1 patch topical DAILY Qty: 15 RF: 0 Stand Alone Forms: Work/School Release
== END 2021-04-27 20:29 | disposition home or self-care (01) ==
PROVIDERS: Emergency Medicine; Emergency Provider Emergency Medicine Emergency Medical Services
DX: U07.1 COVID-19 (principal); R50.9 Fever, unspecified
CPT/HCPCS: 0241U; 99282; 99283

== ENCOUNTER 2021-08-13 09:07 | Emergency (ER) | payer OTHER, SELFPAY ==
--- NOTE | ~2021-08-13 | XR_ITS ---
EXAMINATION: XR KNEE, LEFT CLINICAL INFORMATION: Fall 2 weeks ago COMPARISON: None TECHNIQUE: Four views of the left knee. FINDINGS: Bones and soft tissues are normal. No fracture or joint effusion. Alignment is anatomic. Joint spaces are well maintained. No abnormal soft tissue calcification. XR/XR knee LT 3V IMPRESSION: Normal left knee.
[2021-08-13 09:21] VITALS: BP 110/67; PULSE 71; RESP 17; TEMP 35.7; O2SAT 95; BMI 33.9
--- NOTE | 2021-08-13 11:00 | ED.LOWEXIN ---
HPI - Extremity Injury (Lower) General Chief Complaint: Extremity Injury, Lower Stated Complaint: L knee pain Time Seen by Provider: 08/13/21 11:00 Source: patient Mode of arrival: ambulatory History of Present Illness HPI Narrative: 51-year-old female with no significant past medical history presenting to the ED complaining of left knee pain and swelling s/p mechanical trip and fall while stepping into pool 2 weeks ago. Reports pain greatest at medial aspect. Denies numbness, tingling, weakness MD complaint: knee injury Onset (ago): week(s) Related Data Previous Rx's Medication Instructions Recorded acetaminophen 650 mg 650 mg PO Q8H PRN #30 tab 03/17/20 tablet,extended release (Tylenol Arthritis Pain) hydrocodone-homatropine 5 mg-1.5 5 ml PO Q6H PRN #60 ml 03/17/20 mg/5 mL oral syrup ibuprofen 600 mg tablet 600 mg PO Q8H PRN #20 tab 03/17/20 lidocaine 5 % topical patch 1 patch TOPICAL DAILY #15 ea 03/17/20 (Lidoderm) benzonatate 100 mg capsule 100 mg PO TID PRN #18 cap 09/20/20 (Tessalon Perles) cyclobenzaprine 10 mg tablet 10 mg PO TID PRN #10 tab 11/25/20 lidocaine 5 % topical patch 1 patch TOPICAL DAILY #15 ea 11/25/20 (Lidoderm) hydrocodone-homatropine 5 mg-1.5 5 ml PO Q6H PRN #60 ml 04/27/21 mg/5 mL (5 mL) oral syrup (Hycodan) ondansetron 4 mg disintegrating 4 mg PO Q6-8H PRN #14 tab 04/27/21 tablet Allergies Allergy/AdvReac Type Severity Reaction Status Date / Time aspirin [ASA] Allergy Unknown HIVES Verified 11/25/20 11:09 Penicillins [PENICILLINS] Allergy Unknown HIVES Verified 11/25/20 11:09 Review of Systems Review of Systems: Constitutional: No Fever, No Chills ENT/Mouth: No Ear Pain, No Nasal Congestion, No sore throat, No Rhinorrhea, No Swallowing Difficulty Cardiovascular: No Chest Pain, No SOB Respiratory: No Cough, No Sputum, No Wheezing Gastrointestinal: No Nausea, No Vomiting, No Diarrhea, No Constipation, No Abdominal pain Genitourinary:, No Dysuria, No Urinary Frequency, No Urgency, No Flank Pain Musculoskeletal: + joint pain, No Myalgias, + Joint Swelling Skin: No Skin Lesions, No rash Neuro: No Weakness, No Numbness, No Paresthesias Yes all other systems are reviewed and are negative [facility] Past Medical History Attestation statement: The following information was validated with the patient. Medical History No known health problems Surgical History Status post partial hysterectomy Social History Social History Advance Directives: No Physical Exam Vital Signs: Vital Signs: Last Vital Signs Temp 96.2 F L 08/13/21 09:21 Pulse 71 08/13/21 09:21 Resp 17 08/13/21 09:21 BP 110/67 08/13/21 09:21 Pulse Ox 95 08/13/21 09:21 BMI result Body Mass Index 33.9 Const: General: cooperative, healthy appearing and no acute distress Orientation/consciousness: patient oriented x3 Limitations: no limitations HEENT: Head: Yes normal to inspection Ears: hearing grossly normal bilaterally General nose exam: Normal external nose present Face and sinus: Yes normal facial exam Eyes: General: appearance normal, both eyes and all related structures EOM: EOMs intact bilaterally Neck: Neck: Yes normal visual inspection and Yes no meningeal signs Resp: Effort & Inspection: normal respiratory effort and no respiratory distress Cardio: Rate: regular rate Peripheral pulses: dorsalis pedis present Skin: Rashes: no rashes Wounds: no wounds Neuro: General: patient oriented x3 and no meningeal signs Gait exam (Neuro): Normal gait present Extrem: Other: Left knee with mild swelling to medial aspect, tender to palpation, decreased full extension secondary to pain. Flexion intact. Neurovascular intact distally. Mild laxity noted with Varus stress Course Course Course Narrative: Knee x-ray unremarkable > Emmett wrap applied for comfort/debility and inflammation. Patient given orthopedic follow-up, discussed worrisome signs and symptoms MDM - Extremity Injury (Lower) MDM Narrative Medical decision making narrative: 51-year-old female with no significant past medical history presenting to the ED complaining of left knee pain and swelling s/p mechanical trip and fall while stepping into pool 2 weeks ago. On exam vital signs stable, NAD, physical exam as above. Concern for meniscal vs tendon/ligamental injury/sprain. Unlikely fracture Plan: X-rays, orthopedic follow-up Differential Diagnosis Differential diagnosis: Likely acute internal derangement of knee Medical Records Attestation: I reviewed the patient's medical records. Lab Data Attestation: I reviewed the patient's lab results. Discharge Plan Discharge Clinical Impression: Injury of knee, left Patient Disposition: Home, Self-Care Instructions: Knee Pain (ED) Additional Instructions: Your x-ray was unremarkable however you likely have a meniscal/tendon or ligamental injury. You need to follow-up with orthopedics. Wear Emmett wrap at home for comfort and stability. Ice and elevate. Take Tylenol and Motrin for pain/swelling. Return to ED if symptoms persist or worsen/become unbearable Prescriptions: No Action ibuprofen 600 mg tablet 600 mg PO Q8H PRN (Reason: pain) Qty: 20 0RF acetaminophen [Tylenol Arthritis Pain] 650 mg tablet extended release 650 mg PO Q8H PRN (Reason: pain) Qty: 30 0RF lidocaine [Lidoderm] 5 % adhesive patch,medicated 1 patch topical DAILY Qty: 15 0RF Rx Instructions: leave on most painful area for up to 12 hrs hydrocodone-homatropine 5-1.5 mg/5 mL syrup 5 ml PO Q6H PRN (Reason: cough) Qty: 60 0RF benzonatate [Tessalon Perles] 100 mg capsule 100 mg PO TID PRN (Reason: cough) Qty: 18 0RF cyclobenzaprine 10 mg tablet 10 mg PO TID PRN (Reason: muscle spasm) Qty: 10 0RF lidocaine [Lidoderm] 5 % adhesive patch,medicated 1 patch topical DAILY Qty: 15 0RF Rx Instructions: leave on most painful area for up to 12 hrs ondansetron 4 mg tablet,disintegrating 4 mg PO Q6-8H PRN (Reason: nausea and vomiting) Qty: 14 0RF hydrocodone-homatropine [Hycodan] 5-1.5 mg/5 mL (5 mL) syrup 5 ml PO Q6H PRN (Reason: cough) Qty: 60 0RF Referrals: Prem Salazar PA-C [[facility] [employer]] - 1 week
== END 2021-08-13 11:11 | disposition home or self-care (01) ==
PROVIDERS: Emergency Provider Emergency Medicine
DX: M25.562 Pain in left knee (principal); Z79.899 Other long term (current) drug therapy
CPT/HCPCS: 73562; 99283

== ENCOUNTER → 2021-09-01 12:21 | Outpatient (BNVA) | payer OTHER, SELFPAY | PROVIDERS: Visit Provider Physician Assistant | DX: M23.92 Unspecified internal derangement of left knee (principal) | CPT/HCPCS: 99202 ==

== ENCOUNTER 2021-09-15 19:11 | Outpatient (REF) | payer OTHER, SELFPAY ==
--- NOTE | ~2021-09-15 | MR_ITS ---
EXAMINATION: MR KNEE WITHOUT CONTRAST, LEFT CLINICAL INFORMATION: Medial/posterior left knee pain. Swelling. Fall one month ago. COMPARISON: None TECHNIQUE: MRI of the knee without contrast was performed using routine sequences on a high-field scanner. FINDINGS: MENISCI: Medial Meniscus: Focal inner margin fraying/tearing of the posterior horn (sagittal image 17/26). Lateral Meniscus: Mild inner margin fraying of the posterior root. LIGAMENTS: Cruciate: Intact. Collateral: Prominent edema adjacent to the medial collateral ligament with mild attenuation and intrasubstance fluid signal, consistent with a grade 2 sprain/partial tear. Intact fibular collateral ligament. EXTENSOR MECHANISM: Intact. ARTICULAR CARTILAGE/BONE: Patellofemoral Compartment: Normal. Medial Compartment: Normal. Lateral Compartment: Normal. JOINT FLUID AND BURSAE: Trace joint effusion and trace Walker's cyst. MR/MR knee LT wo con IMPRESSION: 1. Acute grade 2 sprain of the medial collateral ligament with adjacent soft tissue edema. 2. Focal inner margin fraying/tearing of the medial meniscus posterior horn. 3. Mild inner margin fraying of the lateral meniscus posterior root. 4. Trace joint effusion and trace Walker's cyst.
== END 2021-09-15 19:12 | disposition home or self-care (01) ==
LOC: HO.MRI 19:11
PROVIDERS: Visit Provider Physician Assistant
DX: M23.92 Unspecified internal derangement of left knee (principal)
CPT/HCPCS: 73721

== ENCOUNTER 2021-10-08 10:38 | Emergency (ER) | payer OTHER, SELFPAY ==
[2021-10-08 10:44] VITALS: BP 104/58; PULSE 79; RESP 18; TEMP 36.8; O2SAT 97; BMI 33.9
--- NOTE | 2021-10-08 11:43 | ED_ITS ---
HPI - Dental/Oral General Chief complaint: General Medical Stated complaint: Facial swelling Time Seen by Provider: 10/08/21 11:29 Source: patient Mode of arrival: ambulatory Limitations: no limitations History of Present Illness HPI Narrative: 51-year-old female who does not have a dentist and does not have primary care, presents for right-sided facial swelling that started this morning. Patient states she has not seen a dentist for many years. States she has been grinding her teeth, and feel like her teeth are loose on the right side of her upper jaw. Her teeth are tender there. One month ago 1 of her front teeth fell out. No fevers MD Complaint: tooth pain Teeth map: 1. tender to palp Onset (ago): day(s) (1) Duration: constant Relieving factors: nothing Exacerbating factors: chewing, cold and heat Context: history of dental caries and poor dental care Treatment prior to arrival: none Related Data Allergies Allergy/AdvReac Type Severity Reaction Status Date / Time aspirin [ASA] Allergy Unknown HIVES Verified 09/01/21 12:37 Penicillins [PENICILLINS] Allergy Unknown HIVES Verified 09/01/21 12:37 Review of Systems Constitutional: Constitutional: Denies body ache(s), Denies chills, Denies fatigue, Denies fever(s), Denies headache(s), Denies malaise and Denies weakness Eyes: Eyes: Denies diplopia ENT: Reports dental pain, Denies vertigo, Denies dizziness, Denies otalgia, Reports facial pain, Denies headache(s), Denies mouth pain, Denies post nasal drip, Denies sinus pain, Denies sinus pressure, Denies sore throat and Denies throat swelling Cardiovascular: Cardiovascular: Denies chest pain, Denies syncope, Denies leg edema, Denies lightheadedness, Denies Loss of Consciousness, Denies palpitations and Denies dyspnea Respiratory: Respiratory: Denies chest congestion, Denies cough and Denies dyspnea Musculoskeletal: Musculoskeletal: Reports no additional musculoskeletal complaints Neurologic: Denies confusion, Denies vertigo, Denies dizziness, Denies syncope, Denies headache(s) and Denies weakness Psychiatric: Psychiatric: Denies anxiety, Denies confusion and Denies depressi on Endocrine: Endocrine: Denies fatigue and Denies palpitations Allergic/Immunologic: Allergic/Immunologic: Denies throat swelling PMFSH Past Medical History Medical History (Updated 10/08/21 @ 11:50 by RAJ Padilla) No known health problems Surgical History (Updated 09/01/21 @ 12:42 by KAILEE Beltrán) H/O tubal ligation Hx of rotator cuff surgery Status post partial hysterectomy Social History Social History (Updated 09/01/21 @ 12:43 by KAILEE Beltrán) Patient Tobacco Use Status: Current everyday Tobacco user Advance Directives: No Advance Directives Information Provided: No Current occupational status: unemployed Physical Exam Vital Signs: Vital Signs: Last Vital Signs Temp 98.2 F 10/08/21 10:44 Pulse 79 10/08/21 10:44 Resp 18 10/08/21 10:44 BP 104/58 L 10/08/21 10:44 Pulse Ox 97 10/08/21 10:44 O2 Del Method 10/08/21 10:44 BMI result Body Mass Index 33.9 Const: General: No confusion Nutritional Appearance: well nourished Jonathan entation/consciousness: No confusion Limitations: no limitations HEENT: Head: Yes atraumatic Ears: hearing grossly normal bilaterally, external ears normal, TM's normal bilaterally and EAC's normal General nose exam: Normal external nose present Face and sinus: Yes sinuses nontender, No face symmetric, No erythema and No fluctuance Face images: 1. mild swelling Mouth: Normal oral and palatal mucosa present, lip normal and tongue normal Teeth and gingiva: abnormal dentition and poor dentition Teeth image: 1. caries, gum recession, tender on buccal surface Throat: Yes posterior oropharynx normal Eyes: Conjunctivae: conjunctivae normal Pupils: Equal, round and reactive pupils present EOM: EOMs intact bilaterally Neck: Neck: Yes full ROM, Yes no lymphadenopathy and Yes supple Resp: Effort & Inspection: normal respiratory effort and able to speak in complete sentences Auscultation: clear to auscultation bilaterally, no crackles, no rales, no rhonchi and no wheezes Cardio: Rate: regular rate Rhythm: regular rhythm Heart sounds: S1 normal heart sound present and S2 normal heart sound present GI: Inspection: Yes normal to inspection Palpation (GI): Soft to palpation, nontender, no guarding and not rigid Percussion: Yes normal to percussion Auscultation: normal bowel sounds Skin: General skin exam: no rashes or lesions noted Neuro: General: No confusion Cranial nerves: Yes Equal, round and reactive pupils present Extrem: General: Yes normal to inspection and Yes full ROM Psych: Appearance: grossly normal Affect: normal affect Attitude: cooperative Thought process: Normal thought process present Course Course Course Narrative: 51-year-old female who has known dentist and has not seen a dentist firm many years presents for right-sided facial pain and swelling. Patient has a history of grinding her teeth, dental caries, and has recently lost her right front tooth. On exam, patient has stable vitals, patient is tender on the mucosal surface tooth 3. No cellulitis or fluctuant abscess that can be drained in the gumline. Patient does have multiple dental caries and is missing multiple teeth will start on clindamycin, gave patient a list of dentists to follow up on Discharge Plan Discharge Clinical Impression: Abscess, dental Patient Disposition: Home, Self-Care Instructions: Dental Abscess (ED) Additional Instructions: please call a dentist on the list of dentists we have prescribed for you. Please alternate Tylenol and ibuprofen for pain please take the clindamycin I have prescribed for you, take 1 pill every 6 hours for the next 10 days. If you have fevers, worsening swelling, or if within the next 2 days your dental pain does not start to get better, please return to emergency
== END 2021-10-08 11:56 | disposition home or self-care (01) ==
PROVIDERS: Emergency Provider Emergency Medicine
DX: K04.7 Periapical abscess without sinus (principal); K02.9 Dental caries, unspecified; F17.200 Nicotine dependence, unspecified, uncomplicated
CPT/HCPCS: 99282; 99283

== ENCOUNTER → 2021-10-22 13:20 | Outpatient (BNVA) | payer OTHER, SELFPAY | PROVIDERS: Visit Provider Physician Assistant | DX: S83.242A Other tear of medial meniscus, current injury, left knee, initial encounter (principal) | CPT/HCPCS: 99212 ==

== ENCOUNTER → 2021-10-31 11:15 | Outpatient (BNVA) | payer OTHER, SELFPAY | PROVIDERS: Visit Provider Orthopaedic Surgery | DX: S83.242D Other tear of medial meniscus, current injury, left knee, subsequent encounter (principal); S83.412D Sprain of medial collateral ligament of left knee, subsequent encounter | CPT/HCPCS: 99202 ==

== ENCOUNTER 2022-04-23 10:42 | Emergency (ER) | payer OTHER, SELFPAY ==
--- NOTE | 2022-04-23 | ECG_ITS ---
Test Reason : CP Blood Pressure : / mmHG Vent. Rate : 082 BPM Atrial Rate : 082 BPM P-R Int : 140 ms QRS Dur : 068 ms QT Int : 400 ms P-R-T Axes : 060 035 062 degrees QTc Int : 467 ms Normal sinus rhythm Low voltage QRS nonspecific T wave changes Abnormal ECG When compared with ECG of 25-NOV-2020 12:10, No significant change was found Referred By: Generic ED Physician Electronically Signed By:Omar Zurita
--- NOTE | ~2022-04-23 | CT_ITS ---
EXAMINATION: CT ANGIOGRAM CHEST CLINICAL INFORMATION: Sudden onset anterior chest pain COMPARISON: CT angiogram chest 11/25/2020 TECHNIQUE: Multiple axial images were obtained through the chest after the administration of 70 mL of Omnipaque 350 intravenous contrast. Extensive vascular post-processing including two-dimensional and three-dimensional reformatted images were created and reviewed on an independent workstation. This CT examination was performed using dose optimization techniques as appropriate, variously including the following: *Automated exposure control *Adjustment of mA and/or kV according to patient size (this includes techniques or standardized protocols for targeted exams where dose is matched to indication/reason for exam; i.e. extremities or head) *Use of iterative reconstruction technique DLP: 473 mGy-cm VASCULAR FINDINGS: The thoracic aorta appears normal. There is no evidence of aneurysm, dissection or intramural hematoma. 2 vessel branching pattern is noted of the aortic arch with a common trunk involving the innominate and left carotid artery. The great vessels are widely patent. Although not carried out for evaluation the pulmonary arteries or pulmonary veins, they are well seen. No pulmonary emboli are detected. The small included portion of the abdominal aorta is unremarkable. The celiac SMA and bilateral renal arteries are widely patent. NONVASCULAR FINDINGS: LUNGS: The lungs are clear with no evidence of inflammation or nodules. MEDIASTINUM: The mediastinum is normal. PLEURA: There is no pleural effusion. No pleural mass or thickening. AXILLA: No lymphadenopathy. UPPER ABDOMEN: Unremarkable. OSSEOUS STRUCTURES: Unremarkable. Some minimal degenerative changes are present in the spine. CT/CT angio chest aorta IMPRESSION: No evidence of aortic dissection. A cause for the patient's acute chest pain has not been found. No pulmonary emboli are seen. Fleischner guidelines were followed.
--- NOTE | ~2022-04-23 | XR_ITS ---
EXAMINATION: XR CHEST CLINICAL INFORMATION: Chest pain COMPARISON: None TECHNIQUE: 2 views of the chest were obtained. FINDINGS: No significant abnormality is noted involving the heart, lungs, mediastinum, bony thorax or soft tissues. XR/XR chest 2V IMPRESSION: Unremarkable examination.
[2022-04-23 11:17] VITALS: BP 137/83; PULSE 80; RESP 24; TEMP 36.6; O2SAT 99; BMI 37.1
--- NOTE | 2022-04-23 11:20 | ED.CHESTPAIN ---
HPI - Chest Pain General Chief Complaint: Chest Pain <RAJ Brandon - Last Filed: 04/27/22 11:27> Stated Complaint: CP, hard to breathe <RAJ Brandon - Last Filed: 04/27/22 11:27> Time Seen by Provider: 04/23/22 11:39 <RAJ Brandon - Last Filed: 04/27/22 11:27> Source: patient <Stanislaw Tsang MD - Last Filed: 04/23/22 14:57> Mode of arrival: ambulatory <Stanislaw Tsang MD - Last Filed: 04/23/22 14:57> Limitations: no limitations <Stanislaw Tsang MD - Last Filed: 04/23/22 14:57> History of Present Illness HPI narrative: 52-year-old female who presents emergency department for evaluation of sudden onset of chest pain. She states she woke up this morning and she was feeling fine. She then went to brush her teeth and she developed a sudden onset of pressure-like pain that was located in her anterior posterior chest. She states she feels like her chest was squeezing together and the pain was a tightness. The pain was 10/10. The pain was worse with breathing. The patient felt short of breath, lightheaded and dizzy. The patient still having chest pain at the time my evaluation but it did improved. Pain was initially 10/10 now the pain is 8/10. Patient states that 20 years ago she did experience chest pain secondary to panic attacks but she believes this pain is different. She did tell me however that her sister was recently diagnosed with breast cancer and this has upset the patient has caused stress. Patient denied fever chills. She states she has had slight rhinorrhea and sore throat. She has a chronic cough secondary to smoking. She had nausea associated with her pain but no vomiting. She states that she had diarrhea for several days last week but this resolved. The patient does smoke 1/3 pack of cigarettes per day times 41 years. <Stanislaw Tsang MD - Last Filed: 04/23/22 14:57> Related Data Home Medications: Previous Rx's Medication Instructions Recorded clindamycin HCl 300 mg capsule 300 mg PO Q6H 10 days #40 caps 10/08/21 lorazepam 1 mg tablet (Ativan) 1 mg PO TID PRN anxiety #12 tabs 04/23/22 <RAJ Brandon - Last Filed: 04/27/22 11:27> Allergies/Adverse Reactions: Allergies Allergy/AdvReac Type Severity Reaction Status Date / Time aspirin [ASA] Allergy Unknown HIVES Verified 10/22/21 13:32 Penicillins [PENICILLINS] Allergy Unknown HIVES Verified 10/22/21 13:32 <RAJ Brandon - Last Filed: 04/27/22 11:27> Review of Systems Review of Systems: Yes all other systems are reviewed and are negative <Stanislaw Tsang MD - Last Filed: 04/23/22 14:57> COUNTS INCLUDE 234 BEDS AT THE [facility] Past Medical History COUNTS INCLUDE 234 BEDS AT THE [facility] Narrative: Past medical history: None. Past surgical history: Reviewed below. Social history: She smokes 1/3 pack of cigarettes per day times 41 years. She occasionally drinks alcohol. She does smoke marijuana. <Stanislaw Tsang MD - Last Filed: 04/23/22 14:57> Medical History: Medical History No known health problems <RAJ Brandon - Last Filed: 04/27/22 11:27> Surgical History: Surgical History H/O tubal ligation Hx of rotator cuff surgery Status post partial hysterectomy <RAJ Brandon - Last Filed: 04/27/22 11:27> Social History Social History: Social History Patient Tobacco Use Status: Current everyday Tobacco user Advance Directives: No Current occupational status: unemployed <RAJ Brandon - Last Filed: 04/27/22 11:27> Physical Exam Vital Signs: Vital Signs: Last Vital Signs Temp 97.9 F 04/23/22 11:17 Pulse 71 04/23/22 12:47 Resp 16 04/23/22 12:47 BP 116/81 04/23/22 12:47 Pulse Ox 99 04/23/22 12:47 O2 Del Method 04/23/22 12:47 BMI result Body Mass Index 37.1 <RAJ Brandon - Last Filed: 04/27/22 11:27> Vital Signs: Last Vital Signs Temp 97.9 F 04/23/22 11:17 Pulse 71 04/23/22 12:47 Resp 16 04/23/22 12:47 BP 116/81 04/23/22 12:47 Pulse Ox 99 04/23/22 12:47 O2 Del Method 04/23/22 12:47 BMI result Body Mass Index 37.1 <Stanislaw Tsang MD - Last Filed: 04/23/22 14:57> Const: General: cooperative and no acute distress <Stanislaw Tsang MD - Last Filed: 04/23/22 14:57> Orientation/consciousness: oriented to person and oriented to place <Stanislaw Tsang MD - Last Filed: 04/23/22 14:57> Limitations: no limitations <Stanislaw Tsang MD - Last Filed: 04/23/22 14:57> HEENT: Head: Yes normal to inspection, Yes normocephalic and Yes atraumatic <Stanislaw Tsang MD - Last Filed: 04/23/22 14:57> Ears: external ears normal <Stanislaw Tsang MD - Last Filed: 04/23/22 14:57> General nose exam: Normal external nose present <Stanislaw Tsang MD - Last Filed: 04/23/22 14:57> Face and sinus: Yes normal facial exam <Stanislaw Tsang MD - Last Filed: 04/23/22 14:57> Mouth: Normal oral and palatal mucosa present <Stanislaw Tsang MD - Last Filed: 04/23/22 14:57> Throat: Yes posterior oropharynx normal <Stanislaw Tsang MD - Last Filed: 04/23/22 14:57> Eyes: General: appearance normal, both eyes and all related structures <Stanislaw Tsang MD - Last Filed: 04/23/22 14:57> Pupils: Equal, round and reactive pupils present <Stanislaw Tsang MD - Last Filed: 04/23/22 14:57> Neck: Neck: Yes normal visual inspection, Yes no lymphadenopathy, Yes trachea midline and Yes supple <Stanislaw Tsang MD - Last Filed: 04/23/22 14:57> Chest: Chest palpation & inspection: normal inspection of the chest and normal palpation of entire chest wall <Stanislaw Tsang MD - Last Filed: 04/23/22 14:57> Resp: Effort & Inspection: normal respiratory effort and able to speak in complete sentences <Stanislaw Tsang MD - Last Filed: 04/23/22 14:57> Auscultation: clear to auscultation bilaterally <Stanislaw Tsang MD - Last Filed: 04/23/22 14:57> Cardio: Rate: regular rate <Stanislaw Tsang MD - Last Filed: 04/23/22 14:57> Rhythm: regular rhythm <Stanislaw Tsang MD - Last Filed: 04/23/22 14:57> Heart sounds: S1 normal heart sound present, S2 normal heart sound present and no murmurs <Stanislaw Tsang MD - Last Filed: 04/23/22 14:57> GI: Inspection: Yes normal to inspection <Stanislaw Tsang MD - Last Filed: 04/23/22 14:57> Palpation (GI): Soft to palpation, nontender and no guarding <Stanislaw Tsang MD - Last Filed: 04/23/22 14:57> Auscultation: normal bowel sounds <Stanislaw Tsang MD - Last Filed: 04/23/22 14:57> : General: Yes no CVA tenderness <Stanislaw Tsang MD - Last Filed: 04/23/22 14:57> Back/Spine/Pelvis: Back: no CVA tenderness <Stanislaw Tsang MD - Last Filed: 04/23/22 14:57> Skin: General skin exam: no rashes or lesions noted <Stanislaw Tsang MD - Last Filed: 04/23/22 14:57> Neuro: General: oriented to person and oriented to place <Stanislaw Tsang MD - Last Filed: 04/23/22 14:57> Cranial nerves: Yes CN's II-XII intact bilaterally and Yes Equal, round and reactive pupils present <Stanislaw Tsang MD - Last Filed: 04/23/22 14:57> Cognition (Neuro): normal cognition <Stanislaw Tsang MD - Last Filed: 04/23/22 14:57> Motor exam (neuro): 5/5 motor strength present throughout <Stanislaw Tsang MD - Last Filed: 04/23/22 14:57> Extrem: General: Yes normal to inspection <Stanislaw Tsang MD - Last Filed: 04/23/22 14:57> Psych: Appearance: grossly normal <Stanislaw Tsang MD - Last Filed: 04/23/22 14:57> Speech and movement: Normal speech and movement present <Stanislaw Tsang MD - Last Filed: 04/23/22 14:57> Affect: normal affect <Stanislaw Tsang MD - Last Filed: 04/23/22 14:57> Attitude: cooperative <Stanislaw Tsang MD - Last Filed: 04/23/22 14:57> Thought process: Normal thought process present <Stanislaw Tsang MD - Last Filed: 04/23/22 14:57> Thought content: Normal thought content present <Stanislaw Tsang MD - Last Filed: 04/23/22 14:57> Course Course Course Narrative: RME: patient presents to the ED for midsternal chest pain with pleurisy since this morning. patient has family history of DE( MOM). Vitals signs are stable. No leg swelling, or pitting edema, or calf tenderness. lungs clear.m heart sounds normal . EKG. Caridac labs, D D-dimer. Covid, and chest xray ordered. <RAJ Brandon - Last Filed: 04/27/22 11:27> RME: patient presents to the ED for midsternal chest pain with pleurisy since this morning. patient has family history of DE( MOM). Vitals signs are stable. No leg swelling, or pitting edema, or calf tenderness. lungs clear.m heart sounds normal . EKG. Caridac labs, D D-dimer. Covid, and chest xray ordered. 1224: Course: RME reviewed. 52-year-old female who presents emergency department for evaluation of sudden onset of anterior and posterior chest pressure which was 10/10 at its onset associated with diaphoresis, nausea and lightheadedness. Patient is still experiencing 8/10 pain. Her examination was unremarkable. Laboratory evaluation: CBC and CMP were normal. BNP and high sensitive troponin I were below detectable limits. D-dimer was normal at 189. Twelve EKG revealed inverted T-waves in V1 and V2 otherwise was unremarkable. At this time I do not have a clear etiology for the patient's pain but I am concerned that she has both anterior and posterior chest pain with lightheadedness, nausea and shortness of breath. And concerned that she may have an aortic dissection therefore I did order a CT thoracic aortic angiogram. Patient's pain was treated with Toradol 15 mg IV. She was given Ativan 1 mg orally for her anxiety. She also ordered to get normal saline IV x1 L. 1447: CT thoracic aorta revealed no dissection other acute findings which is reassuring. With the patient's chest pain is secondary to stress reaction/anxiety/depression. Patient will be given a limited prescription for Ativan. She was advised to follow-up with her PCP to discuss further management of anxiety, depression and panic attacks. <Stanislaw Tsang MD - Last Filed: 04/23/22 14:57> Medications Administered Discontinued Medications Generic Name Dose Route Start Last Admin Trade Name Freq PRN Reason Stop Dose Admin Sodium Chloride 1,000 mls @ 999 mls/hr 04/23/22 12:27 04/23/22 14:05 Ns IV 04/23/22 13:27 Infused .Q1H1M STA Infusion Iohexol 100 ml 04/23/22 13:06 04/23/22 13:06 Iohexol 350 Mg/Ml 100 Ml Infus..Btl IV 04/23/22 13:07 70 ml ONCE ONE Administration Ketorolac Tromethamine 15 mg 04/23/22 12:19 04/23/22 12:44 Ketorolac Tromethamine 15 Mg/Ml Vial IVPUSH 04/23/22 12:20 15 mg ONCE STA Administration Lorazepam 1 mg 04/23/22 12:19 04/23/22 12:44 Lorazepam 1 Mg Tablet PO 04/23/22 12:20 1 mg ONCE ONE Administration <RAJ Brandon - Last Filed: 04/27/22 11:27> Medications Administered Discontinued Medications Generic Name Dose Route Start Last Admin Trade Name Anastasia PRN Reason Stop Dose Admin Sodium Chloride 1,000 mls @ 999 mls/hr 04/23/22 12:27 04/23/22 14:05 Ns IV 04/23/22 13:27 Infused .Q1H1M STA Infusion Iohexol 100 ml 04/23/22 13:06 04/23/22 13:06 Iohexol 350 Mg/Ml 100 Ml Infus..Btl IV 04/23/22 13:07 70 ml ONCE ONE Administration Ketorolac Tromethamine 15 mg 04/23/22 12:19 04/23/22 12:44 Ketorolac Tromethamine 15 Mg/Ml Vial IVPUSH 04/23/22 12:20 15 mg ONCE STA Administration Lorazepam 1 mg 04/23/22 12:19 04/23/22 12:44 Lorazepam 1 Mg Tablet PO 04/23/22 12:20 1 mg ONCE ONE Administration <Stanislaw Tsang MD - Last Filed: 04/23/22 14:57> Medical Decision Making Lab Data MDM Lab Attestation statement: I reviewed the patient's lab results. <Stanislaw Tsang MD - Last Filed: 04/23/22 14:57> Result Diagrams: : 04/23/22 11:32 04/23/22 11:32 <RAJ Brandon - Last Filed: 04/27/22 11:27> Labs: Lab Results 04/23/22 04/23/22 04/23/22 Range/Units 11:32 11:32 11:32 WBC 9.4 (4.8-10.8) X10*3/uL RBC 5.13 (4.20-5.50) X10*6/uL Hgb 14.5 (12.0-16.0) g/dl Hct 43.3 (37.0-47.0) % MCV 84.4 (80.0-98.0) fL MCH 28.3 (27.0-33.0) pg MCHC 33.5 (31.0-35.0) g/dl RDW 13.4 (11.0-16.0) % Plt Count 393 (160-400) X10*3/uL MPV 9.0 L (9.4-12.3) fL Immature Gran % (Auto) 0.3 (0.0-0.4) % Neut % (Auto) 66.4 (45-73) % Lymph % (Auto) 26.7 (20-40) % Norman % (Auto) 5.3 (2-11) % Eos % (Auto) 0.7 (0-4) % Baso % (Auto) 0.6 (0-2) % Lymph # (Auto) 2.5 (1.2-4.9) X10*3/uL Norman # (Auto) 0.5 (0.1-1.2) X10*3/uL Eos # (Auto) 0.1 (0.0-0.4) X10*3/uL Baso # (Auto) 0.1 (0.0-0.2) X10*3/uL Abs Immat Gran (auto) 0.03 (0.00-0.03) X10*3/uL Absolute Neuts (auto) 6.3 (2.0-8.3) x10*3/uL Absolute Nucleated RBC 0.000 (0.0-0.012) X10*3/uL Nucleated RBC % (auto) 0.0 (0.0-0.2) /100WBC PT (10.0-13.1) SEC INR (0.9-1.1) APTT (26.0-36.4) SEC D-Dimer High Sensitivty 189 NG/ML Sodium 137 (135-145) mmol/L Potassium 4.2 (3.3-5.1) mmol/L Chloride 105 (96-108) mmol/L Carbon Dioxide 23 (22-29) mmol/L Anion Gap 13 (12-20) BUN 14 (9-16) mg/dL Creatinine 0.97 (0.5-1.4) mg/dL Estim Creat Clear Calc 81.9 Estimated GFR > 60 Random Glucose 123 H (60-115) mg/dL Calcium 9.8 (8.4-10.2) mg/dL Total Bilirubin 0.5 (0.0-1.0) mg/dL AST 16 (5-31) U/L ALT 15 (0-31) U/L Alkaline Phosphatase 88 (39-117) U/L Troponin I High Sens (<3.5-17.0) ng/L B-Natriuretic Peptide (<100) pg/mL Total Protein 8.5 H (6.5-8.0) g/dL Albumin 4.4 (3.5-5.0) g/dL Influenza Type A (PCR) (Negative) Influenza Type B (PCR) (Negative) RSV RNA Qual (PCR) (Negative) SARS-CoV-2 RNA (RT-PCR) (Negative) 04/23/22 04/23/22 04/23/22 Range/Units 11:32 11:32 11:32 WBC (4.8-10.8) X10*3/uL RBC (4.20-5.50) X10*6/uL Hgb (12.0-16.0) g/dl Hct (37.0-47.0) % MCV (80.0-98.0) fL MCH (27.0-33.0) pg MCHC (31.0-35.0) g/dl RDW (11.0-16.0) % Plt Count (160-400) X10*3/uL MPV (9.4-12.3) fL Immature Gran % (Auto) (0.0-0.4) % Neut % (Auto) (45-73) % Lymph % (Auto) (20-40) % Norman % (Auto) (2-11) % Eos % (Auto) (0-4) % Baso % (Auto) (0-2) % Lymph # (Auto) (1.2-4.9) X10*3/uL Norman # (Auto) (0.1-1.2) X10*3/uL Eos # (Auto) (0.0-0.4) X10*3/uL Baso # (Auto) (0.0-0.2) X10*3/uL Abs Immat Gran (auto) (0.00-0.03) X10*3/uL Absolute Neuts (auto) (2.0-8.3) x10*3/uL Absolute Nucleated RBC (0.0-0.012) X10*3/uL Nucleated RBC % (auto) (0.0-0.2) /100WBC PT (10.0-13.1) SEC INR (0.9-1.1) APTT (26.0-36.4) SEC D-Dimer High Sensitivty NG/ML Sodium (135-145) mmol/L Potassium (3.3-5.1) mmol/L Chloride (96-108) mmol/L Carbon Dioxide (22-29) mmol/L Anion Gap (12-20) BUN (9-16) mg/dL Creatinine (0.5-1.4) mg/dL Estim Creat Clear Calc Estimated GFR Random Glucose (60-115) mg/dL Calcium (8.4-10.2) mg/dL Total Bilirubin (0.0-1.0) mg/dL AST (5-31) U/L ALT (0-31) U/L Alkaline Phosphatase (39-117) U/L Troponin I High Sens < 3.5 (<3.5-17.0) ng/L B-Natriuretic Peptide < 10 (<100) pg/mL Total Protein (6.5-8.0) g/dL Albumin (3.5-5.0) g/dL Influenza Type A (PCR) NEGATIVE (Negative) Influenza Type B (PCR) NEGATIVE (Negative) RSV RNA Qual (PCR) NEGATIVE (Negative) SARS-CoV-2 RNA (RT-PCR) NEGATIVE (Negative) 04/23/22 Range/Units 11:32 WBC (4.8-10.8) X10*3/uL RBC (4.20-5.50) X10*6/uL Hgb (12.0-16.0) g/dl Hct (37.0-47.0) % MCV (80.0-98.0) fL MCH (27.0-33.0) pg MCHC (31.0-35.0) g/dl RDW (11.0-16.0) % Plt Count (160-400) X10*3/uL MPV (9.4-12.3) fL Immature Gran % (Auto) (0.0-0.4) % Neut % (Auto) (45-73) % Lymph % (Auto) (20-40) % Norman % (Auto) (2-11) % Eos % (Auto) (0-4) % Baso % (Auto) (0-2) % Lymph # (Auto) (1.2-4.9) X10*3/uL Norman # (Auto) (0.1-1.2) X10*3/uL Eos # (Auto) (0.0-0.4) X10*3/uL Baso # (Auto) (0.0-0.2) X10*3/uL Abs Immat Gran (auto) (0.00-0.03) X10*3/uL Absolute Neuts (auto) (2.0-8.3) x10*3/uL Absolute Nucleated RBC (0.0-0.012) X10*3/uL Nucleated RBC % (auto) (0.0-0.2) /100WBC PT 12.1 (10.0-13.1) SEC INR 1.1 (0.9-1.1) APTT 29.3 (26.0-36.4) SEC D-Dimer High Sensitivty NG/ML Sodium (135-145) mmol/L Potassium (3.3-5.1) mmol/L Chloride (96-108) mmol/L Carbon Dioxide (22-29) mmol/L Anion Gap (12-20) BUN (9-16) mg/dL Creatinine (0.5-1.4) mg/dL Estim Creat Clear Calc Estimated GFR Random Glucose (60-115) mg/dL Calcium (8.4-10.2) mg/dL Total Bilirubin (0.0-1.0) mg/dL AST (5-31) U/L ALT (0-31) U/L Alkaline Phosphatase (39-117) U/L Troponin I High Sens (<3.5-17.0) ng/L B-Natriuretic Peptide (<100) pg/mL Total Protein (6.5-8.0) g/dL Albumin (3.5-5.0) g/dL Influenza Type A (PCR) (Negative) Influenza Type B (PCR) (Negative) RSV RNA Qual (PCR) (Negative) SARS-CoV-2 RNA (RT-PCR) (Negative) <RAJ Brandon - Last Filed: 04/27/22 11:27> Lab Results 04/23/22 04/23/22 04/23/22 Range/Units 11:32 11:32 11:32 WBC 9.4 (4.8-10.8) X10*3/uL RBC 5.13 (4.20-5.50) X10*6/uL Hgb 14.5 (12.0-16.0) g/dl Hct 43.3 (37.0-47.0) % MCV 84.4 (80.0-98.0) fL MCH 28.3 (27.0-33.0) pg MCHC 33.5 (31.0-35.0) g/dl RDW 13.4 (11.0-16.0) % Plt Count 393 (160-400) X10*3/uL MPV 9.0 L (9.4-12.3) fL Immature Gran % (Auto) 0.3 (0.0-0.4) % Neut % (Auto) 66.4 (45-73) % Lymph % (Auto) 26.7 (20-40) % Norman % (Auto) 5.3 (2-11) % Eos % (Auto) 0.7 (0-4) % Baso % (Auto) 0.6 (0-2) % Lymph # (Auto) 2.5 (1.2-4.9) X10*3/uL Norman # (Auto) 0.5 (0.1-1.2) X10*3/uL Eos # (Auto) 0.1 (0.0-0.4) X10*3/uL Baso # (Auto) 0.1 (0.0-0.2) X10*3/uL Abs Immat Gran (auto) 0.03 (0.00-0.03) X10*3/uL Absolute Neuts (auto) 6.3 (2.0-8.3) x10*3/uL Absolute Nucleated RBC 0.000 (0.0-0.012) X10*3/uL Nucleated RBC % (auto) 0.0 (0.0-0.2) /100WBC PT (10.0-13.1) SEC INR (0.9-1.1) APTT (26.0-36.4) SEC D-Dimer High Sensitivty 189 NG/ML Sodium 137 (135-145) mmol/L Potassium 4.2 (3.3-5.1) mmol/L Chloride 105 (96-108) mmol/L Carbon Dioxide 23 (22-29) mmol/L Anion Gap 13 (12-20) BUN 14 (9-16) mg/dL Creatinine 0.97 (0.5-1.4) mg/dL Estim Creat Clear Calc 81.9 Estimated GFR > 60 Random Glucose 123 H (60-115) mg/dL Calcium 9.8 (8.4-10.2) mg/dL Total Bilirubin 0.5 (0.0-1.0) mg/dL AST 16 (5-31) U/L ALT 15 (0-31) U/L Alkaline Phosphatase 88 (39-117) U/L Troponin I High Sens (<3.5-17.0) ng/L B-Natriuretic Peptide (<100) pg/mL Total Protein 8.5 H (6.5-8.0) g/dL Albumin 4.4 (3.5-5.0) g/dL Influenza Type A (PCR) (Negative) Influenza Type B (PCR) (Negative) RSV RNA Qual (PCR) (Negative) SARS-CoV-2 RNA (RT-PCR) (Negative) 04/23/22 04/23/22 04/23/22 Range/Units 11:32 11:32 11:32 WBC (4.8-10.8) X10*3/uL RBC (4.20-5.50) X10*6/uL Hgb (12.0-16.0) g/dl Hct (37.0-47.0) % MCV (80.0-98.0) fL MCH (27.0-33.0) pg MCHC (31.0-35.0) g/dl RDW (11.0-16.0) % Plt Count (160-400) X10*3/uL MPV (9.4-12.3) fL Immature Gran % (Auto) (0.0-0.4) % Neut % (Auto) (45-73) % Lymph % (Auto) (20-40) % Norman % (Auto) (2-11) % Eos % (Auto) (0-4) % Baso % (Auto) (0-2) % Lymph # (Auto) (1.2-4.9) X10*3/uL Norman # (Auto) (0.1-1.2) X10*3/uL Eos # (Auto) (0.0-0.4) X10*3/uL Baso # (Auto) (0.0-0.2) X10*3/uL Abs Immat Gran (auto) (0.00-0.03) X10*3/uL Absolute Neuts (auto) (2.0-8.3) x10*3/uL Absolute Nucleated RBC (0.0-0.012) X10*3/uL Nucleated RBC % (auto) (0.0-0.2) /100WBC PT (10.0-13.1) SEC INR (0.9-1.1) APTT (26.0-36.4) SEC D-Dimer High Sensitivty NG/ML Sodium (135-145) mmol/L Potassium (3.3-5.1) mmol/L Chloride (96-108) mmol/L Carbon Dioxide (22-29) mmol/L Anion Gap (12-20) BUN (9-16) mg/dL Creatinine (0.5-1.4) mg/dL Estim Creat Clear Calc Estimated GFR Random Glucose (60-115) mg/dL Calcium (8.4-10.2) mg/dL Total Bilirubin (0.0-1.0) mg/dL AST (5-31) U/L ALT (0-31) U/L Alkaline Phosphatase (39-117) U/L Troponin I High Sens < 3.5 (<3.5-17.0) ng/L B-Natriuretic Peptide < 10 (<100) pg/mL Total Protein (6.5-8.0) g/dL Albumin (3.5-5.0) g/dL Influenza Type A (PCR) NEGATIVE (Negative) Influenza Type B (PCR) NEGATIVE (Negative) RSV RNA Qual (PCR) NEGATIVE (Negative) SARS-CoV-2 RNA (RT-PCR) NEGATIVE (Negative) 04/23/22 Range/Units 11:32 WBC (4.8-10.8) X10*3/uL RBC (4.20-5.50) X10*6/uL Hgb (12.0-16.0) g/dl Hct (37.0-47.0) % MCV (80.0-98.0) fL MCH (27.0-33.0) pg MCHC (31.0-35.0) g/dl RDW (11.0-16.0) % Plt Count (160-400) X10*3/uL MPV (9.4-12.3) fL Immature Gran % (Auto) (0.0-0.4) % Neut % (Auto) (45-73) % Lymph % (Auto) (20-40) % Norman % (Auto) (2-11) % Eos % (Auto) (0-4) % Baso % (Auto) (0-2) % Lymph # (Auto) (1.2-4.9) X10*3/uL Norman # (Auto) (0.1-1.2) X10*3/uL Eos # (Auto) (0.0-0.4) X10*3/uL Baso # (Auto) (0.0-0.2) X10*3/uL Abs Immat Gran (auto) (0.00-0.03) X10*3/uL Absolute Neuts (auto) (2.0-8.3) x10*3/uL Absolute Nucleated RBC (0.0-0.012) X10*3/uL Nucleated RBC % (auto) (0.0-0.2) /100WBC PT 12.1 (10.0-13.1) SEC INR 1.1 (0.9-1.1) APTT 29.3 (26.0-36.4) SEC D-Dimer High Sensitivty NG/ML Sodium (135-145) mmol/L Potassium (3.3-5.1) mmol/L Chloride (96-108) mmol/L Carbon Dioxide (22-29) mmol/L Anion Gap (12-20) BUN (9-16) mg/dL Creatinine (0.5-1.4) mg/dL Estim Creat Clear Calc Estimated GFR Random Glucose (60-115) mg/dL Calcium (8.4-10.2) mg/dL Total Bilirubin (0.0-1.0) mg/dL AST (5-31) U/L ALT (0-31) U/L Alkaline Phosphatase (39-117) U/L Troponin I High Sens (<3.5-17.0) ng/L B-Natriuretic Peptide (<100) pg/mL Total Protein (6.5-8.0) g/dL Albumin (3.5-5.0) g/dL Influenza Type A (PCR) (Negative) Influenza Type B (PCR) (Negative) RSV RNA Qual (PCR) (Negative) SARS-CoV-2 RNA (RT-PCR) (Negative) <Stanislaw Tsang MD - Last Filed: 04/23/22 14:57> Independent Interpretation I performed an independent interpretation of an: EKG <Stanislaw Tsang MD - Last Filed: 04/23/22 14:57> Interpretation: My interpretation of the 12 EKG done at 10:53 is as follows: Normal sinus rhythm rate of 83, normal MT interval, QRS duration QTC interval, inverted T-waves in V1 and V2, no ST segment elevation, no ST segment depression, Q-wave in lead 3, PACs, no PVCs. This is a normal EKG. <Stanislaw Tsang MD - Last Filed: 04/23/22 14:57> Discharge Plan Discharge Clinical Impression: Chest pain, Anxiety attack, Grief reaction <RAJ Brandon - Last Filed: 04/27/22 11:27> Patient Disposition: Home, Self-Care <RAJ Brandon - Last Filed: 04/27/22 11:27> Instructions: Anxiety (ED) <RAJ Brandon - Last Filed: 04/27/22 11:27> Additional Instructions: Your blood work was normal. Your EKG was normal. Your COVID-19, influenza and RSV tests were negative. Your chest x-ray and CT thoracic aortic angiogram were normal. At this time, I believe that your chest pain was caused by stress, grief, anxiety and depression. Take Ativan 1 mg pills, 1 pill every 6 hours as needed for anxiety. This medication will make you sleepy, do not drive or work while taking this medication. This medication can be addicting, if your concerned about addiction you can ask the pharmacist for less medications or do not get the prescription filled. Follow-up with your doctor in 2 days to discuss further management of your depression and anxiety. Please return to the emergency department if your symptoms get worse or if you develop any symptoms that are concerning to you. <RAJ Brandon - Last Filed: 04/27/22 11:27> Prescriptions: New lorazepam [Ativan] 1 mg tablet 1 mg PO TID PRN (Reason: anxiety) Qty: 12 0RF Rx Instructions: Patient may request partial fill No Action clindamycin HCl 300 mg capsule 300 mg PO Q6H 10 Days Qty: 40 0RF <RAJ Brandon - Last Filed: 04/27/22 11:27> Interventions: ED Discharge Assessment Last Done: 04/23/22 15:03 <RAJ Brandon - Last Filed: 04/27/22 11:27> Discharge Date/Time: 04/23/22 15:04 <RAJ Brandon - Last Filed: 04/27/22 11:27>
[2022-04-23 11:40] LABS: MANUAL DIFF FLAG NO
[2022-04-23 11:43] LABS: Basophils Absolute Auto 0.1 X10*3/uL (0.0-0.2); Basophils Percent Auto 0.6 % (0-2); Eosinophils Absolute Auto 0.1 X10*3/uL (0.0-0.4); Eosinophils Percent Auto 0.7 % (0-4); Hematocrit 43.3 % (37.0-47.0); Hemoglobin 14.5 g/dl (12.0-16.0); Imm Gran Abs Auto 0.03 X10*3/uL (0.00-0.03); Imm Gran Pct Auto 0.3 % (0.0-0.4); Lymphocytes Absolute Auto 2.5 X10*3/uL (1.2-4.9); Lymphocytes Percent Auto 26.7 % (20-40); Mean Corpuscular HGB Conc 33.5 g/dl (31.0-35.0); Mean Corpuscular Hemoglobin 28.3 pg (27.0-33.0); Mean Corpuscular Volume 84.4 fL (80.0-98.0); Monocytes Absolute Auto 0.5 X10*3/uL (0.1-1.2); Monocytes Percent Auto 5.3 % (2-11); Neutrophils Absolute Auto 6.3 x10*3/uL (2.0-8.3); Neutrophils Percent Auto 66.4 % (45-73); Platelet Count 393 X10*3/uL (160-400); Red Blood Count 5.13 X10*6/uL (4.20-5.50); Red Cell Distribution Width 13.4 % (11.0-16.0); White Blood Count 9.4 X10*3/uL (4.8-10.8)
[2022-04-23 11:50] VITALS: BP 121/78; PULSE 70; RESP 18; O2SAT 98
[2022-04-23 11:51] LABS: INTERNATIONAL NORM RATIO 1.1 (0.9-1.1); Prothrombin Time 12.1 SEC (10.0-13.1)
[2022-04-23 11:53] LABS: D Dimer High Sensitivity 189 NG/ML
[2022-04-23 11:54] LABS: Partial Thromboplastin Time 29.3 SEC (26.0-36.4)
[2022-04-23 11:59] LABS: Alanine Aminotransferase 15 U/L (0-31); Albumin Level 4.4 g/dL (3.5-5.0); Alkaline Phosphatase 88 U/L (39-117); Anion Gap 13 (12-20); Aspartate Amino Transferase 16 U/L (5-31); Bilirubin Total 0.5 mg/dL (0.0-1.0); Blood Urea Nitrogen 14 mg/dL (9-16); Calcium 9.8 mg/dL (8.4-10.2); Carbon Dioxide 23 mmol/L (22-29); Chloride 105 mmol/L (96-108); Creatinine Clr Calc Pharmacy 81.9; Estimated Glomerular Filt Rate > 60; Glucose Random 123 mg/dL (60-115); Potassium 4.2 mmol/L (3.3-5.1); Sodium 137 mmol/L (135-145); Total Protein 8.5 g/dL (6.5-8.0)
[2022-04-23 12:03] LABS: B Type Natriuretic Peptide < 10 pg/mL (<100)
[2022-04-23 12:08] LABS: Troponin-I High Sensitivity < 3.5 ng/L (<3.5-17.0)
[2022-04-23 12:21] LABS: Influenza A PCR NEGATIVE (Negative); Influenza B PCR NEGATIVE (Negative); Resp Syncy Virus RNA Qual PCR NEGATIVE (Negative); SARS COV2 PCR INHOUSE NEGATIVE (Negative)
[2022-04-23] MEDS: LORazepam 1 MG TABLET PO (12:44)
[2022-04-23] MEDS: Ketorolac Tromethamine 15 MG/ML VIAL IVPUSH (12:44)
[2022-04-23] MEDS: 0.9 % Sodium Chloride 1,000 ML 999 ML IV (12:45)
[2022-04-23 12:47] VITALS: BP 116/81; PULSE 71; RESP 16; O2SAT 99
[2022-04-23] MEDS: iohexoL 350 MG/ML 100 ML INFUS..BTL IV (13:06)
--- NOTE | 2022-04-23 14:12 | PC.NURSE ---
Chest pain has improved s/p Toradol given. Awaiting dispo
== END 2022-04-23 15:04 | disposition home or self-care (01) ==
PROVIDERS: Physician Assistant; Emergency Provider Emergency Medicine Emergency Medical Services
DX: R07.9 Chest pain, unspecified (principal); F43.22 Adjustment disorder with anxiety; F41.0 Panic disorder [episodic paroxysmal anxiety]; R06.02 Shortness of breath; Z20.828 Contact with and (suspected) exposure to other viral communicable diseases
CPT/HCPCS: 0241U; 36415; 71046; 71275; 80053; 83880; 84484; 85025; 85379; 85610; 85730; 93005; 96361; 96374; 99284; 99285; J1885; Q9967

== ENCOUNTER 2022-06-26 17:50 | Emergency (ER) | payer OTHER, SELFPAY ==
--- NOTE | 2022-06-26 17:57 | ED_ITS ---
HPI - General Adult General Chief complaint: Skin/Abscess/Foreign Body Stated complaint: cyst on R arm Time Seen by Provider: 06/26/22 18:05 Source: patient Mode of arrival: ambulatory Limitations: no limitations History of Present Illness HPI narrative: Patient is a 52 year old assigned female at with no reported medical history presenting to the emergency department today with a right axillary abscess. Patient states that since Wednesday, she has been dealing with this abscess in her right axilla. Patient states that it started after she used her husbands razor to shave her armpits instead of her own. Patient states that it has already ruptured and started draining. Patient denies any dizziness, lightheadedness, abdominal pain, nausea, vomiting, fever, chills, blurry vision, double vision, loss of vision, chest pain, difficulty breathing, shortness of breath, back pain, night sweats, pain with urination, increased urinary frequency, increased urinary urgency, blood in her urine or stool, syncope or a near syncopal episode, recent trauma or falls, bowel incontinence, bladder incontinence, bowel retention, bladder retention, or any other complaints at this time. Onset (ago): day(s) (4) Location: right (axilla) Radiation: non-radiation Severity: mild Severity scale (1-10): 3 Quality: dull Pain Consistency: constant Relieving factors: none Exacerbating factors: none Associated symptoms: denies other symptoms Treatments prior to arrival: none Related Data Previous Rx's Medication Instructions Recorded clindamycin HCl 300 mg capsule 300 mg PO Q6H 10 days #40 caps 10/08/21 lorazepam 1 mg tablet (Ativan) 1 mg PO TID PRN anxiety #12 tabs 04/23/22 cephalexin 500 mg capsule 500 mg PO Q6H 7 days #28 caps 06/26/22 Allergies Allergy/AdvReac Type Severity Reaction Status Date / Time aspirin [ASA] Allergy Unknown HIVES Verified 06/26/22 18:00 Penicillins [PENICILLINS] Allergy Unknown HIVES Verified 06/26/22 18:00 Review of Systems Constitutional: Constitutional: Reports no additional constitutional complaints, Denies chills, Denies fever(s) and Denies night sweats Eyes: Eyes: Reports no additional eye complaints, Denies blurry vision, Denies change in vision, Denies diplopia, Denies eye discharge, Denies loss of vision and Denies eye pain ENT: Denies dizziness Cardiovascular: Cardiovascular: Reports no additional cardiovascular complaints, Denies chest pain, Denies lightheadedness, Denies Loss of Consciousness and Denies dyspnea Respiratory: Respiratory: Reports no additional respiratory complaints and Denies dyspnea Gastrointestinal: Gastrointestinal: Reports no additional gastrointestinal complaints, Denies abdominal pain, Denies melena, Denies hematochezia, Denies change in bowel habits and Denies change in stool character Genitourinary: Genitourinary: Denies hematuria, Denies urinary frequency, Denies dysuria, Denies urinary incontinence, Denies urinary hesitancy and Denies urinary urgency Musculoskeletal: Musculoskeletal: Reports no additional musculoskeletal complaints, Denies numbness and Denies tingling Integumentary/Breasts: Comments: right axillary abscess Neurologic: Denies dizziness, Denies loss of vision, Denies numbness and Denies tingling Psychiatric: Psychiatric: Reports no additional psychiatric complaints Endocrine: Endocrine: Reports no additional endocrine complaints Hematologic/Lymphatic: Hematologic/Lymphatic: Reports no additional hematologic/lymphatic complaints Allergic/Immunologic: Allergic/Immunologic: Reports no additional allergic/immunologic complaints PMFSH Past Medical History Attestation statement: The following information was validated with the patient. Source: old records reviewed and nursing notes reviewed Medical History No known health problems Surgical History H/O tubal ligation Hx of rotator cuff surgery Status post partial hysterectomy Social History Social History Patient Tobacco Use Status: Current everyday Tobacco user Advance Directives: No Advance Directives Information Provided: No Current occupational status: unemployed Physical Exam ED Vital Signs: Vital Signs - 24 hr 06/26/22 18:00 Temperature 98.2 F Pulse Rate 99 Respiratory Rate 16 Blood Pressure 148/78 H Pulse Oximetry 99 Oxygen Delivery Method Room Air BMI result Body Mass Index 36.0 Const General: cooperative, no acute distress, alert and awake Nutritional Appearance: well nourished Orientation/consciousness: patient oriented x3 Limitations: no limitations HENMT Head: Yes normal to inspection and Yes atraumatic Ears: hearing grossly normal bilaterally and external ears normal General nose exam: Normal external nose present, no nasal discharge noted and no epistaxis Face and sinus: Yes normal facial exam, No abrasion and No laceration Mouth: Normal oral and palatal mucosa present, no drooling and no muffled voice Eyes General: appearance normal, both eyes and all related structures Periorbital: periorbital findings normal Eyelids: Yes eyelids normal Conjunctivae: conjunctivae normal Pupils: Equal, round and reactive pupils present EOM: EOMs intact bilaterally Neck Neck: Yes normal visual inspection, Yes full ROM and Yes no lymphadenopathy Chest Chest palpation & inspection: normal inspection of the chest Resp Effort & Inspection: normal respiratory effort and able to speak in complete sentences Auscultation: clear to auscultation bilaterally Cardio Rate: regular rate Rhythm: regular rhythm GI Inspection: Yes normal to inspection Neuro General: patient oriented x3 and moves all extremities Cranial nerves: Yes Equal, round and reactive pupils present Cognition (Neuro): normal cognition Motor exam (neuro): 5/5 motor strength present throughout Sensory Exam: Normal double simultaneous stimulation for sensation Coordination: [id number] test normal Extrem Other: small abscess to the right axilla, actively draining General: Yes full ROM and Yes capillary refill normal Psych Appearance: grossly normal Mental Status: mental status grossly normal Affect: normal affect Attitude: cooperative Thought process: Normal thought process present Thought content: Normal thought content present Insight: Good insight present (Psych) Medications Administered Discontinued Medications Generic Name Dose Route Start Last Admin Trade Name Freq PRN Reason Stop Dose Admin Cephalexin HCl 500 mg 06/26/22 18:05 06/26/22 18:11 Cephalexin 500 Mg Capsule PO 06/26/22 18:06 500 mg ONCE ONE Administration Medical Decision Making Medical Decision Making [facility] Narrative: Patient is a 52 year old assigned female at with no reported medical history presenting to the emergency department today with a right axillary abscess. Patient's physical exam showed a small right axillary abscess actively draining. I explained my physical exam findings to the patient. I answered all questions asked by the patient. I stressed the importance of the patient taking her medication as prescribed. I stressed the importance of the patient following up with her primary care provider. I stressed the importance of the patient returning to the emergency department immediately if her symptoms were to worsen or if she were to develop any dizziness, shortness of breath, difficulty breathing, chest pain, blurry vision, loss of vision, nausea, vomiting, abdominal pain, fever, chills, back pain, or any other complaints. Patient verbalized agreement and understanding with this treatment plan and discharge. Differential Diagnosis Differential Diagnoses: The differential diagnosis associated with the presentation includes right axillary abscess Discharge Plan Discharge Clinical Impression: Abscess Patient Disposition: Home, Self-Care Instructions: Abscess (ED) Additional Instructions: Follow up with your primary care provider and a general surgeon. Return to the emergency department immediately if your symptoms worsen or if you develop any dizziness, shortness of breath, difficulty breathing, chest pain, blurry vision, loss of vision, nausea, vomiting, abdominal pain, fever, chills, back pain, or any other complaints. Prescriptions: New cephalexin 500 mg capsule 500 mg PO Q6H 7 Days Qty: 28 0RF No Action clindamycin HCl 300 mg capsule 300 mg PO Q6H 10 Days Qty: 40 0RF lorazepam [Ativan] 1 mg tablet 1 mg PO TID PRN (Reason: anxiety) Qty: 12 0RF Rx Instructions: Patient may request partial fill Referrals: [facility] [place] [facility] [Provider Group] (Call to establish and follow up with a general surgeon. ) Stand Alone Forms: Work/School Release Discharge Date/Time: 06/26/22 18:11 Print Language: Portuguese
[2022-06-26 18:00] VITALS: BP 148/78; PULSE 99; RESP 16; TEMP 36.8; O2SAT 99; BMI 36.0
[2022-06-26] MEDS: cephALEXin 500 MG CAPSULE PO (18:11)
== END 2022-06-26 18:11 | disposition home or self-care (01) ==
LOC: HO.ED 18:09
PROVIDERS: Emergency Provider Emergency Medicine Emergency Medical Services
DX: L02.411 Cutaneous abscess of right axilla (principal); Z79.899 Other long term (current) drug therapy
CPT/HCPCS: 99281; 99283

== ENCOUNTER 2022-12-31 12:00 | Emergency (ER) | payer OTHER, SELFPAY ==
--- NOTE | ~2022-12-31 | XR_ITS ---
EXAMINATION: XR CHEST CLINICAL INFORMATION: Pneumonia COMPARISON: Chest radiograph from 04/23/2022 TECHNIQUE: Frontal view of the chest was obtained. FINDINGS: No focal consolidation. No pneumothorax. Trachea is midline. Cardiac mediastinal silhouette is not enlarged. No large pleural effusion. Dextrocurvature of the thoracolumbar spine with multilevel degenerative changes. Soft tissues are unremarkable. XR/XR chest 1V IMPRESSION: No acute cardiopulmonary process.
[2022-12-31 12:18] VITALS: BP 103/69; PULSE 67; RESP 16; TEMP 36.9; O2SAT 100; BMI 40.2
--- NOTE | 2022-12-31 12:20 | ED.GENADULT ---
HPI - General Adult General Chief complaint: Upper Respiratory Symptoms Stated complaint: chills, headache, difficulty breathing Time Seen by Provider: 12/31/22 12:29 Source: patient Limitations: no limitations History of Present Illness HPI narrative: 52-year-old female who presents with 3 day history of body aches headache chills nausea positive COVID exposure at work. Patient does have a smoking history to states he takes no prescribed medications at this time. Symptoms are [id number]. No recent travel history. Positive nasal congestion without cough at this time. Denies chest pain. Patient had 1 vaccination dose of for COVID-19. Related Data Previous Rx's Medication Instructions Recorded clindamycin HCl 300 mg capsule 300 mg PO Q6H 10 days #40 caps 10/08/21 lorazepam 1 mg tablet (Ativan) 1 mg PO TID PRN anxiety #12 tabs 04/23/22 cephalexin 500 mg capsule 500 mg PO Q6H 7 days #28 caps 06/26/22 ondansetron 4 mg disintegrating 4 mg PO TID PRN nausea and 12/31/22 tablet vomiting 4 days #10 tabs tramadol 50 mg tablet 50 mg PO BID PRN pain #7 tabs 12/31/22 Allergies Allergy/AdvReac Type Severity Reaction Status Date / Time aspirin [ASA] Allergy Unknown HIVES Verified 12/31/22 12:21 Penicillins [PENICILLINS] Allergy Unknown HIVES Verified 12/31/22 12:21 Review of Systems Review of Systems: General: Positive fever positive chills, positive body aches Ophthalmology: No vision changes, no discharge ENT: Positive nasal congestion Cardiovascular: No chest pain, no peripheral edema, no shortness of breath Respiratory: No dyspnea, no sputum production, no cough Muscle skeletal: No malaise, no back pain, no neck pain, no extremity pain GI: No abdominal pain, no nausea vomiting, no diarrhea : No dysuria, no urgency, no frequency Skin: No rash Neuro: Positive headache Immunology: No immunocompromised Hematology: No bleeding, no bruising PMFSH Past Medical History Medical History No known health problems Surgical History H/O tubal ligation Hx of rotator cuff surgery Status post partial hysterectomy Social History Social History Patient Tobacco Use Status: Current everyday Tobacco user Advance Directives: No Current occupational status: unemployed Physical Exam ED Vital Signs: Vital Signs - 24 hr 12/31/22 12:18 Temperature 98.5 F Pulse Rate 67 Respiratory Rate 16 Blood Pressure 103/69 Pulse Oximetry 100 Oxygen Delivery Method Room Air BMI result Body Mass Index 40.2 General appearance: Awake, alert, cooperative, in no acute distress nontoxic in appearance Skin: Warm, dry, no rash Eyes: PERRL, EOMI, no icterus ENT: Oropharynx normal, uvula midline slight nasal congestion Neck: Soft supple full range of motion Pulmonary: Breath sounds clear to auscultation bilaterally, no accessory muscle use Cardiovascular: Regular rate and rhythm, no murmurs and rubs Abdomen: Soft nontender, no rebound or guarding, positive bowel sounds Extremities: No deformity, nontender, no peripheral edema noted Neuro: Alert oriented x3, no focal deficit Psych: Normal affect Course Course Course Narrative: RME: 52 yold female with slight coughgin, SOB, chills, headache, and bodyaches. patient recently exposed to covid. COvid, Infleunza ordered Medical Decision Making Medical Decision Making [facility] Narrative: Differential diagnosis: Pneumonia COVID-19 Viral URI Influenza Viral syndrome 52-year-old female otherwise healthy states she takes no prescribed medications at this time presents with viral syndrome symptoms over the past 3 days with positive COVID-19 exposure. Patient has received a COVID vaccine but only 1 nose. Patient's O2 sat is 100% on room air at this time no concerns for hypoxia. COVID-19 test is pending with influenza and chest x-ray. 13:52 chest x-ray is negative swab for COVID-19 influenza was also negative symptoms consistent with viral syndrome symptomatic relief at this time. Lab Data Labs: Lab Results 12/31/22 12/31/22 Range/Units 12:28 12:28 COVID-19 (RHONDA) Negative (Negative) COVID-19 Clin Com See Note Influenza Type A (DEBBIE) Negative (Negative) Influenza Type B (DEBBIE) Negative (Negative) Influenza A & B Note See Note Radiology Impression Discussion of test interpretation with radiology: I have reviewed the radiologist's reading. Radiologist Impression: [address] [id number] ReportSigned Patient: lElie Martinez#: [id number]: 1970Acct:[id number]/Sex: 52 / FADM Date: 12/31/22Loc: EDAttending Dr: Ordering Physician: Jeremy Schafer Date of Service: 12/31/22 Procedure(s): XR chest 1V Accession Number(s): [id number] cc: Jeremy Schafer~ EXAMINATION: XR CHEST CLINICAL INFORMATION: Pneumonia COMPARISON: Chest radiograph from 04/23/2022 TECHNIQUE: Frontal view of the chest was obtained. FINDINGS: No focal consolidation. No pneumothorax. Trachea is midline. Cardiac mediastinal silhouette is not enlarged. No large pleural effusion. Dextrocurvature of the thoracolumbar spine with multilevel degenerative changes. Soft tissues are unremarkable. XR/XR chest 1V IMPRESSION: No acute cardiopulmonary process. Dictated By:Tyrese Mora MDSigned By:<Electronically signed by Tyrese Mora MD in OV>12/31/22 1331 DD/ 1242TD/TT: Customer Service Sales Associate: Discharge Plan Discharge Clinical Impression: Viral syndrome Patient Disposition: Home, Self-Care Instructions: Viral Syndrome (ED) Additional Instructions: Your symptoms are consistent with a viral syndrome. You were negative for COVID-19 influenza. Increase fluids rest bland diet medications as directed Return if symptoms worsen Prescriptions: New ondansetron 4 mg tablet,disintegrating 4 mg PO TID PRN (Reason: nausea and vomiting) 4 Days Qty: 10 0RF tramadol 50 mg tablet 50 mg PO BID PRN (Reason: pain) Qty: 7 0RF No Action clindamycin HCl 300 mg capsule 300 mg PO Q6H 10 Days Qty: 40 0RF lorazepam [Ativan] 1 mg tablet 1 mg PO TID PRN (Reason: anxiety) Qty: 12 0RF Rx Instructions: Patient may request partial fill cephalexin 500 mg capsule 500 mg PO Q6H 7 Days Qty: 28 0RF Stand Alone Forms: Work/School Release Interventions: ED Discharge Assessment Last Done: 12/31/22 14:01 Discharge Date/Time: 12/31/22 14:01
[2022-12-31 12:49] LABS: COVID-19 Test Negative (Negative); IDNOW Serial# 08D9AD1C; IDNOW Serial# BCCEAD1C; Influenza A Negative (Negative)
[2022-12-31 12:50] LABS: Influenza B2 Negative (Negative)
--- NOTE | 2022-12-31 14:01 | PC.NURSE ---
Discharge plan reviewed with patient who verbalized understanding
== END 2022-12-31 14:01 | disposition home or self-care (01) ==
PROVIDERS: Physician Assistant; Emergency Provider Emergency Medicine
DX: B34.9 Viral infection, unspecified (principal); R51.9 Headache, unspecified; R06.02 Shortness of breath; Z20.822 Contact with and (suspected) exposure to COVID-19; Z79.899 Other long term (current) drug therapy
CPT/HCPCS: 71045; 87502; 87635; 99282; 99283